=== PATIENT | male | born 1995 | race Caucasian/White ===

== ENCOUNTER 2017-06-11 00:19 | Emergency (ER) | payer BC ==
[~2017-06-11] VITALS: Ht 182.9 cm; Wt 85.5 kg
[~2017-06-11 00:19] MED LIST: ACET325T33 PO; CIPR500T4 PO; DICY10CA60 PO; DICY20TA59 PO; FAMO-96 PO; MAG355OR14 PO; METR500T PO; OMEP20CA16 PO; OMEP40CA6 PO; ONDA4TAB14 PO; ONDA4TAB35 PO; ONDA4TAB8 PO; ZOF8 PO
[2017-06-11 00:26] VITALS: Ht 182.9 cm; Wt 85.5 kg
[2017-06-11] MEDS ORDERED: ONDANSETRON 4 MG INJ IV STA (01:41)
[2017-06-11] MEDS ORDERED: SOD CHLORIDE 0.9% 1,000 ML IV STA (01:41)
[2017-06-11] MEDS ORDERED: morphine 4 MG/ML VIAL IV STA ×2 (01:41→03:27)
--- NOTE | 2017-06-11 01:46 | ERA ---
ER Documentation Chief Complaint Date/Time DATE: 06/11/17 TIME: 01:45 Chief Complaint mid abdominal pain/vomiting x 1 day HPI Patient is a 22-year-old male who presents with sudden onset, constant, dull, moderate to severe epigastric and right upper quadrant pain for 8 hours. He reports many episodes of vomiting. He denies diarrhea. He reports subjective fever. He states that he last ate lunch, and his symptoms did not start for several hours afterwards. He has not experienced this pain before. ROS All systems reviewed and are negative except as per history of present illness. Medications Home Meds Active Scripts Dicyclomine Hcl* (Bentyl*) 10 Mg Capsule, 10 MG PO QID, #20 CAP Prov:DANIEL YOO MD 06/11/17 Famotidine* (Pepcid*) 20 Mg Tablet, 20 MG PO BID for 7 Days, TAB Prov:DANIEL YOO MD 06/11/17 Ondansetron Hcl* (Zofran*) 4 Mg Tablet, 4 MG PO Q8H Y for NAUSEA AND/OR VOMITING , #20 TAB Prov:DANIEL YOO MD 06/11/17 Acetaminophen* (Tylenol*) 325 Mg Tablet, 2 TAB PO Q6 Y for PAIN AND OR ELEVATED TEMP, #20 TAB Prov:JENNIFER VICTOR PA-C 05/18/17 Omeprazole* (Omeprazole*) 20 Mg Capsule.dr, 20 MG PO DAILY, #30 Prov:JENNIFER VICTOR PA-C 05/18/17 Ondansetron (Ondansetron Odt) 4 Mg Tab.rapdis, 4 MG PO Q6H Y for NAUSEA AND/OR VOMITING, #10 TAB Prov:JENNIFER VICTOR PA-C 05/18/17 Mag Hydrox/Al Hydrox/Simeth (Maalox Advanced Suspension) 355 Ml Oral.susp, 2 TSP PO TID for PAIN, #12 OZ Prov:MUKUL RENNER MD 04/10/17 Omeprazole* (Omeprazole*) 40 Mg Capsule.dr, 40 MG PO DAILY, #30 CAP Prov:MUKUL RENNER MD 04/10/17 Ondansetron Hcl* (Zofran*) 4 Mg Tablet, 4 MG PO Q8H Y for NAUSEA AND/OR VOMITING , #20 TAB Prov:MUKUL RENNER MD 04/10/17 Ondansetron (Ondansetron Odt) 4 Mg Tab.rapdis, 4 MG PO Q6H Y for NAUSEA AND/OR VOMITING, #10 TAB Prov:NORAH,ARTURO 03/09/17 Omeprazole* (Omeprazole*) 40 Mg Capsule.dr, 40 MG PO DAILY, #15 CAP Prov:NORAH,ARTURO 03/09/17 Famotidine* (Pepcid*) 20 Mg Tablet, 20 MG PO BID for 10 Days, TAB Prov:SARAH BRADSHAW DO 11/02/16 Ondansetron Hcl* (Zofran*) 4 Mg Tablet, 4 MG PO Q8H Y for NAUSEA AND/OR VOMITING , #15 TAB Prov:SARAH BRADSHAW DO 11/02/16 Dicyclomine Hcl* (Bentyl*) 10 Mg Capsule, 10 MG PO QID for 3 Days, CAP Prov:BINTA JC 07/20/16 Ondansetron (Ondansetron Odt) 4 Mg Tab.rapdis, 4 MG PO Q6H Y for NAUSEA AND/OR VOMITING, #10 TAB Prov:BINTA JC 07/20/16 Famotidine* (Pepcid*) 20 Mg Tablet, 20 MG PO BID for 4 Days, TAB Prov:BINTA JC 07/20/16 Dicyclomine Hcl* (Bentyl*) 20 Mg Tablet, 20 MG PO QID for abdominal cramps, #20 TAB Prov:ROBERT AMBRIZ DO 06/07/16 Ondansetron Hcl* (Zofran* ODT) 8 mg -ODT Tab.disper, 8 MG PO Q6 Y for NAUSEA AND /OR VOMITING, #10 TAB Prov:MIL AMBRIZS Ale DO 06/07/16 Metronidazole* (Flagyl*) 500 Mg Tablet, 500 MG PO TID for 7 Days, TAB Prov:MIL AMBRIZS ARadha DO 06/07/16 Ciprofloxacin Hcl* (Ciprofloxacin Hcl*) 500 Mg Tablet, 500 MG PO BID for 5 Days , TAB Prov:ROBERT AMBRIZ DO 06/07/16 Ondansetron Hcl* (Zofran* ODT) 4 mg -ODT Tab.disper, 4 MG PO Q6 Y for NAUSEA AND /OR VOMITING, #10 TAB Prov:KASHIF LUCAS DO 03/07/16 Allergies Allergies: Coded Allergies: No Known Allergies (Verified Allergy, Mild, 07/05/10) PMhx/Soc Past medical history: None Past surgical history: None Social history: Drinks alcohol, last alcohol was over the weekend. Denies tobacco or illicit drugs. History of Surgery: No Anesthesia Reaction: No Hx Neurological Disorder: No Hx Respiratory Disorders: No Hx Cardiac Disorders: No Hx Psychiatric Problems: No Hx Miscellaneous Medical Probl: Yes (Gasritis) Hx Alcohol Use: Yes Hx Substance Use: Yes Hx Tobacco Use: Yes FmHx Family History: No coronary disease, No diabetes Physical Exam Vitals Vital Signs Date Time Temp Pulse Resp B/P Pulse Ox O2 Delivery O2 Flow Rate FiO2 06/11/17 05:00 98.7 79 20 191/92 99 Room Air 189/95 06/11/17 03:36 99.1 97 22 182/98 99 Room Air 06/11/17 00:26 98.0 69 20 167/90 98 Physical Exam Const: Alert, in mild distress Head: Atraumatic Eyes: Normal Conjunctiva, no pallor, no icterus ENT: Normal External Ears, Nose and Mouth. Mucous membranes moist Neck: Full range of motion..~ No meningismus. Resp: Clear to auscultation bilaterally, no wheezes, no rales Cardio: Regular rate and rhythm, no murmurs Abd: Soft, nondistended, tender in the epigastrium and right upper quadrant, mild right lower quadrant tenderness, no guarding, no rebound Skin: No petechiae or rashes Back: No midline or flank tenderness Ext: No cyanosis, or edema Neur: Awake and alert Psych: Normal Mood and Affect Result Diagram: 06/11/17 0150 06/11/17 0150 Results 24 hrs Laboratory Tests Test 06/11/17 01:50 06/11/17 03:50 White Blood Count 17.110^3/ul Red Blood Count 5.3010^6/ul Hemoglobin 15.7g/dl Hematocrit 44.2% Mean Corpuscular Volume 83.4fl Mean Corpuscular Hemoglobin 29.6pg Mean Corpuscular Hemoglobin Concent 35.5g/dl Red Cell Distribution Width 12.2% Platelet Count 06859^3/UL Mean Platelet Volume 9.7fl Neutrophils % 92.0% Lymphocytes % 2.0% Reactive Lymphocytes % (Manual) 2% Monocytes % 4.0% Neutrophils # 15.710^3/ul Lymphocytes # 0.310^3/ul Monocytes # 0.710^3/ul Platelet Estimate PLT APPEAR ADEQUATE Prothrombin Time 13.0Sec Prothrombin Time Ratio 1.0 INR International Normalized Ratio 0.98 Sodium Level 144mmol/L Potassium Level 4.0mmol/L Chloride Level 98mmol/L Carbon Dioxide Level 22mmol/L Anion Gap 28 Blood Urea Nitrogen 11mg/dl Creatinine 0.73mg/dl Glucose Level 166mg/dl Calcium Level 10.8mg/dl Total Bilirubin 0.3mg/dl Direct Bilirubin 0.00mg/dl Indirect Bilirubin 0.3mg/dl Aspartate Amino Transf (AST/SGOT) 29IU/L Alanine Aminotransferase (ALT/SGPT) 20IU/L Alkaline Phosphatase 97IU/L Total Protein 8.7g/dl Albumin 5.3g/dl Globulin 3.40g/dl Albumin/Globulin Ratio 1.55 Lipase 30U/L Urine Color YELLOW Urine Clarity CLOUDY Urine pH 7.0 Urine Specific [place] 1.041 Urine Ketones TRACEmg/dL Urine Nitrite NEGATIVEmg/dL Urine Bilirubin NEGATIVEmg/dL Urine Urobilinogen NEGATIVEmg/dL Urine Leukocyte Esterase NEGATIVELeu/ul Urine Microscopic RBC 5/HPF Urine Microscopic WBC 4/HPF Urine Amorphous Crystals FEW/HPF Urine Bacteria FEW/HPF Urine Mucus MODERATE/HPF Urine Hemoglobin NEGATIVEmg/dL Urine Glucose 1+mg/dL Urine Total Protein NEGATIVEmg/dl Current Medications Medications (Trade) Dose Ordered Sig/Rosamaria Route PRN Reason Start Time Stop Time Status Last Admin Dose Admin Sodium Chloride (NS) 1,000 ml @ 1,000 mls/hr Q1H STAT IV 06/11/17 01:41 06/11/17 02:40 DC 06/11/17 01:57 Morphine Sulfate (morphine) 4 mg ONCE STAT IV 06/11/17 01:41 06/11/17 01:43 DC 06/11/17 01:57 Ondansetron HCl (Zofran Inj) 4 mg ONCE STAT IV 06/11/17 01:41 06/11/17 01:43 DC 06/11/17 01:56 Famotidine 20 mg 20 mg ONCE ONCE IV 06/11/17 02:00 06/11/17 02:01 DC 06/11/17 01:56 Sodium Chloride (NS) 100 ml @ ud STK-MED ONCE .ROUTE 06/11/17 03:08 06/11/17 03:09 DC 06/11/17 03:10 Iohexol (Omnipaque 300mg/ ml) 150 ml STK-MED ONCE .ROUTE 06/11/17 03:08 06/11/17 03:09 DC 06/11/17 03:10 Morphine Sulfate (morphine) 4 mg ONCE STAT IV 06/11/17 03:27 06/11/17 03:28 DC 06/11/17 03:33 Procedures/MDM MDM: Patient is a 22-year-old male who presents with epigastric and right upper quadrant pain associated with numerous episodes of vomiting over the last several hours. The patient was tender in the right upper quadrant and appeared very uncomfortable. Labs showed leukocytosis but no evidence of LFT abnormalities or pancreatitis. The patient reported subjective fever. He did have mild right lower quadrant tenderness. Right upper quadrant ultrasound was unremarkable, so a CT scan was performed and is also unremarkable. After the CT was performed, I became aware that the patient has had nearly monthly visits for the last 4 months with the same symptoms. He has had numerous prior CTs that did not show acute pathology. The patient did not disclose having had prior episodes of similar symptoms. I did confront him about his medical record and he acknowledges that he has had the same pain several times in the past. He is not sure what the causes. 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 The patient denies recent marijuana use. 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 On reassessment, the patient appeared significantly improved. He was able to tolerate oral intake without vomiting. He did have persistently elevated blood pressure. He was advised to contact his PMD for close follow-up for blood pressure recheck and possible gastroenterology referral. I prescribed him Zofran, Pepcid, and Bentyl for symptom medic treatment at home. Departure Diagnosis: Primary Impression: Abdominal pain Qualified Code: R10.13 - Epigastric pain Additional Impressions: Vomiting Qualified Code: G43.A0 - Non-intractable cyclical vomiting with nausea Elevated blood pressure reading Condition: DANIEL Soto MD Jun 11, 2017 01:46
[2017-06-11 01:58] LABS: ADD SCAN DIFF NO
[2017-06-11] MEDS ORDERED: FAMOTIDINE 20 MG INJ IV ONE (02:00)
--- NOTE | 2017-06-11 02:13 | RADRPT ---
PROCEDURE: ULTRASOUND LIMITED ABDOMEN CLINICAL INDICATION: 22-year-old male with abdominal pain. TECHNIQUE: Multiple sonographic of the right upper quadrant of the abdomen were obtained. The imag es were reviewed on a PACS workstation. COMPARISON: CT abdomen/pelvis November 02, 2016. FINDINGS: The pancreas is partially visualized and is otherwise without abnormal echogenicity. The liver displays normal echogenicity. The liver measures 16.8 cm in length. No evidence of intrah epatic biliary ductal dilatation is seen. The portal and hepatic veins are unremarkable. The gallbladder demonstrates no wall thickening, sludge, nor stones. No pericholecystic fluid is see n. The common bile duct measures 3.9 mm and is not dilated. The right kidney displays normal echogenicity. The right kidney measures 12.0 cm in length. No calie ctasis or hydronephrosis is seen. No free fluid is seen. IMPRESSION: Unremarkable right upper quadrant abdominal ultrasound. .Mark Dennis MD, MD Date Time Electronically viewed and signed by .Mark Dennis MD, on 06/11/2017 02:13 .Vandana
[2017-06-11 02:14] LABS: ABNORMAL IP MESSAGE 1; HEMATOCRIT 44.2 % (42.0-52.0); HEMOGLOBIN 15.7 g/dl (14.0-18.0); MEAN CORPUSCULAR HEMOGLOBIN 29.6 pg (29.0-33.0); MEAN CORPUSCULAR HGB CONC 35.5 g/dl (32.0-37.0); MEAN CORPUSCULAR VOLUME 83.4 fl (82.0-101.0); MEAN PLATELET VOLUME 9.7 fl (7.4-10.4); PLATELET COUNT 369 10^3/UL (140-415); RED CELL DISTRIBUTION WIDTH 12.2 % (11.5-14.5); WHITE BLOOD COUNT 17.1 10^3/ul (4.8-10.8)
[2017-06-11 02:18] LABS: INR 0.98
[2017-06-11 02:22] LABS: ALBUMIN 5.3 g/dl (3.3-4.9); ALBUMIN/GLOBULIN RATIO 1.55; BILIRUBIN,INDIRECT 0.3 mg/dl (0-1.1); BILIRUBIN,TOTAL 0.3 mg/dl (0.2-1.3); CALCIUM 10.8 mg/dl (8.4-10.2); CREATININE 0.73 mg/dl (0.61-1.24); TOTAL PROTEIN 8.7 g/dl (6.1-8.1)
[2017-06-11 02:36] LABS: LYMPHOCYTES # 0.3 10^3/ul (0.8-2.9); MONOCYTE # 0.7 10^3/ul (0.3-0.9); NEUTROPHIL # 15.7 10^3/ul (1.6-7.5); REACTIVE LYMPHOCYTES% (M) 2 % (0-0)
[2017-06-11 02:37] LABS: PLATELET ESTIMATE PLT APPEAR ADEQUATE
[2017-06-11] MEDS ORDERED: IOHEXOL 300MG/ML 150 ML BTL ONE (03:08)
[2017-06-11] MEDS ORDERED: SOD CHLORIDE 0.9% 100 ML ONE (03:08)
--- NOTE | 2017-06-11 04:07 | RADRPT ---
PROCEDURE: CT ABDOMEN/PELVIS WITH CONTRAST CLINICAL INDICATION: 22-year-old male with right-sided abdominal pain. TECHNIQUE: The study was performed utilizing a GE [employer] VCT 64-slice CT scanner. Direct axia l sections were obtained through the abdomen and pelvis with the use of bases of Omnipaque-300 nonio irina intravenous contrast material. The patient was rescanned secondary to motion artifact. Sagittal and coronal reformations were obtained. One or more of the following dose reduction techniques were utilized: automated exposure control, adjustment of the mA and/or kV according to patient's size or use of iterative reconstruction technique. The images were reviewed on a PACS workstation. CTD/vol = 26.4 mGy; Total Exam DLP = 1665.1 mGy-cm. COMPARISON: Right upper quadrant ultrasound June 11, 2017; CT abdomen/pelvis November 02, 2016. FINDINGS: The lung bases are unremarkable. There is no evidence for significant pleural effusion. The liver has a normal size and contour without focal areas of abnormal density or contrast enhancement. No in trahepatic nor extrahepatic biliary ductal dilatation is seen. The gallbladder demonstrates no wall thickening nor pericholecystic fluid. No biliary stones are evident. The pancreas is without areas o f abnormal attenuation or contrast enhancement. This spleen is identified and has a normal size wit hout abnormal density or contrast enhancement. The adrenal glands are unremarkable. The kidneys are functional bilaterally without abnormal density. No hydroureteronephrosis nor nephroureterolithiasis is evident. The urinary bladder contains urine. There is no evidence for bowel obstruction. The ap pendix is retrocecal and is without edema or surrounding inflammatory reaction. There is no signific ant free fluid. The aortoiliac vessels are without aneurysmal dilatation. The osseous structures are intact. IMPRESSION: Motion artifact otherwise unremarkable contrast CT scan of the abdomen and pelvis. .Mark Dennis MD, MD Date Time Electronically viewed and signed by .Mark Dennis MD, MD on 06/11/2017 04:07 .Vandana
[2017-06-11 04:30] LABS: ADD UMIC YES; UR AMORPHOUS CRYSTAL FEW /HPF (NONE SEEN); UR ASCORBIC ACID NEGATIVE (NEGATIVE); UR BACTERIA FEW /HPF (NONE SEEN); UR BILIRUBIN (Dip) NEGATIVE (NEGATIVE); UR BLOOD (Dip) NEGATIVE (NEGATIVE); UR CLARITY CLOUDY (CLEAR); UR COLOR YELLOW (YELLOW); UR GLUCOSE (Dip) 1+ mg/dL (NEGATIVE); UR KETONES (Dip) TRACE mg/dL (NEGATIVE); UR LEUKOCYTE ESTERASE (Dip) NEGATIVE Leu/ul (NEGATIVE); UR MUCUS MODERATE /HPF (NONE SEEN); UR NITRITE (Dip) NEGATIVE (NEGATIVE); UR RBC 5 /HPF (0-5); UR SPECIFIC GRAVITY (Dip) 1.041 (1.003-1.030); UR TOTAL PROTEIN (Dip) NEGATIVE (NEGATIVE); UR UROBILINOGEN (Dip) NEGATIVE (NEGATIVE)
[2017-06-11 05:00] VITALS: BP 189/95; PULSE 79; RESP 20; TEMP 98.7
[2017-06-11] MEDS ORDERED: ONDA4TAB8 PO (05:20)
[2017-06-11] MEDS ORDERED: FAMO-96 PO (05:20)
[2017-06-11] MEDS ORDERED: DICY10CA60 PO (05:20)
[2017-06-12] MEDS ORDERED: DICY10CA60 PO (14:37)
[2017-06-12] MEDS ORDERED: ONDA4TAB14 PO (14:37)
[2017-06-12] MEDS ORDERED: NAPR-688 PO (14:37)
== END 2017-06-11 05:30 | disposition home or self-care (01) ==
LOC: E/R 00:19 → MERGE 00:19 → E/R 05:30
DX: R10.13 Epigastric pain (principal); G43.A0 Cyclical vomiting, in migraine, not intractable; R03.0 Elevated blood-pressure reading, without diagnosis of hypertension; Z87.891 Personal history of nicotine dependence
CPT/HCPCS: 36415; 74177; 76705; 80053; 81001; 83690; 85025; 85610; 96361; 96374; 96375; 96376; 99285; J2270; J2405; J7030; Q9967

== ENCOUNTER 2017-06-12 12:07 | Emergency (ER) | payer BC ==
[~2017-06-12] VITALS: Ht 172.7 cm; Wt 84.0 kg
[2017-06-12 12:09] VITALS: Ht 172.7 cm; Wt 84.0 kg
[2017-06-12] MEDS ORDERED: LIDOCAINE/MYLANTA 40 ML BTL PO STA (12:27)
[2017-06-12] MEDS ORDERED: ONDANSETRON 4 MG INJ IV STA (12:27)
[2017-06-12] MEDS ORDERED: SOD CHLORIDE 0.9% 1,000 ML IV STA (12:27)
[2017-06-12] MEDS ORDERED: KETOROLAC 30 MG INJ IV STA (12:27)
[2017-06-12 12:58] LABS: BASOPHILS % 0.3 % (0.0-2.0); HEMATOCRIT 44.3 % (42.0-52.0); HEMOGLOBIN 16.2 g/dl (14.0-18.0); LYMPHOCYTES # 0.9 10^3/ul (0.8-2.9); LYMPHOCYTES % 6.6 % (15.0-51.0); MEAN CORPUSCULAR HEMOGLOBIN 29.8 pg (29.0-33.0); MEAN CORPUSCULAR HGB CONC 36.6 g/dl (32.0-37.0); MEAN CORPUSCULAR VOLUME 81.4 fl (82.0-101.0); MEAN PLATELET VOLUME 9.5 fl (7.4-10.4); MONOCYTE # 0.6 10^3/ul (0.3-0.9); MONOCYTES % 4.6 % (0.0-11.0); NEUTROPHIL # 12.3 10^3/ul (1.6-7.5); NEUTROPHILS % 87.9 % (39.0-77.0); PLATELET COUNT 373 10^3/UL (140-415); RED BLOOD COUNT 5.44 10^6/ul (4.70-6.10)
[2017-06-12 13:09] LABS: ALANINE AMINOTRANSFERASE 28 IU/L (13-69); ALBUMIN 5.1 g/dl (3.3-4.9); ALBUMIN/GLOBULIN RATIO 1.82; ALKALINE PHOSPHATASE 83 IU/L (42-121); ANION GAP 26 (8-16); ASPARTATE AMINO TRANSFERASE 27 IU/L (15-46); BILIRUBIN,INDIRECT 0.6 mg/dl (0-1.1); BILIRUBIN,TOTAL 0.6 mg/dl (0.2-1.3); BLOOD UREA NITROGEN 11 mg/dl (7-20); CALCIUM 9.8 mg/dl (8.4-10.2); CARBON DIOXIDE 21 mmol/L (21-31); CHLORIDE 98 mmol/L (97-110); CREATININE 0.78 mg/dl (0.61-1.24); GLUCOSE 135 mg/dl (70-220); POTASSIUM 3.3 mmol/L (3.5-5.1); SODIUM 142 mmol/L (135-144); TOTAL PROTEIN 7.9 g/dl (6.1-8.1)
[2017-06-12 13:16] LABS: UR AMORPHOUS CRYSTAL FEW /HPF (NONE SEEN); UR RBC 2 /HPF (0-5); UR WBC CLUMPS FEW /HPF (NONE SEEN)
[2017-06-12] MEDS ORDERED: morphine 4 MG/ML VIAL IV STA (13:16)
[2017-06-12 13:25] LABS: TROPONIN-I < 0.012 ng/ml (0.00-0.12)
[2017-06-12 13:28] LABS: ADD UMIC YES; UR ASCORBIC ACID NEGATIVE (NEGATIVE); UR BILIRUBIN (Dip) NEGATIVE (NEGATIVE); UR BLOOD (Dip) NEGATIVE (NEGATIVE); UR CLARITY CLOUDY (CLEAR); UR COLOR YELLOW (YELLOW); UR GLUCOSE (Dip) NEGATIVE (NEGATIVE); UR KETONES (Dip) NEGATIVE (NEGATIVE); UR LEUKOCYTE ESTERASE (Dip) NEGATIVE Leu/ul (NEGATIVE); UR NITRITE (Dip) NEGATIVE (NEGATIVE); UR SPECIFIC GRAVITY (Dip) 1.019 (1.003-1.030); UR TOTAL PROTEIN (Dip) NEGATIVE (NEGATIVE); UR UROBILINOGEN (Dip) 1+ mg/dL (NEGATIVE)
[2017-06-12] MEDS ORDERED: SOD CHLORIDE 0.9% 1,000 ML IV ONE (14:00)
[2017-06-12 14:25] LABS: OPIATES Negative (NEGATIVE)
[2017-06-12 14:37] LABS: BARBITURATES Negative (NEGATIVE); BENZODIAZEPINES Negative (NEGATIVE); CANNABINOIDS Positive (NEGATIVE); COCAINE Negative (NEGATIVE)
[2017-06-12] MEDS ORDERED: NAPR-688 PO (14:37)
[2017-06-12] MEDS ORDERED: ONDA4TAB14 PO (14:37)
[2017-06-12] MEDS ORDERED: DICY10CA60 PO (14:37)
--- NOTE | 2017-06-12 14:42 | ERD ---
ER Documentation Chief Complaint Date/Time DATE: 06/12/17 TIME: 14:39 Chief Complaint ABD PAIN WITH VOMITING X 2 DAYS HPI This 22-year-old male presents for abdominal pain 2 days. Also has vomiting. The pain is described as a crampy pain in the middle of his abdomen. Denies any fevers and chills. He is accompanied by his mother. States that he also gets chest pain with his vomiting. No shortness of breath. ROS All systems reviewed and are negative except as per history of present illness. Medications Home Meds Active Scripts Dicyclomine Hcl* (Bentyl*) 10 Mg Capsule, 10 MG PO TID for PAIN, #10 CAP Prov:LANCEKASHIF DO 06/12/17 Ondansetron (Ondansetron Odt) 4 Mg Tab.rapdis, 4 MG PO Q6H Y for NAUSEA AND/OR VOMITING, #10 TAB Prov:LANCEKASHIFSHAMAR FORMAN 06/12/17 Naproxen* (Naproxen*) 500 Mg Tablet, 500 MG PO BID Y for PAIN, #20 TAB Prov:LANCEKASHIF DO 06/12/17 Omeprazole* (Omeprazole*) 20 Mg Capsule.dr, 20 MG PO DAILY, #30 Prov:JENNIFER VICTOR PA-C 05/18/17 Ondansetron (Ondansetron Odt) 4 Mg Tab.rapdis, 4 MG PO Q6H Y for NAUSEA AND/OR VOMITING, #10 TAB Prov:JENNIFER VICTOR PA-C 05/18/17 Discontinued Scripts Dicyclomine Hcl* (Bentyl*) 10 Mg Capsule, 10 MG PO QID, #20 CAP Prov:DANIEL YOO MD 06/11/17 Famotidine* (Pepcid*) 20 Mg Tablet, 20 MG PO BID for 7 Days, TAB Prov:DANIEL YOO MD 06/11/17 Ondansetron Hcl* (Zofran*) 4 Mg Tablet, 4 MG PO Q8H Y for NAUSEA AND/OR VOMITING , #20 TAB Prov:DANIEL YOO MD 06/11/17 Acetaminophen* (Tylenol*) 325 Mg Tablet, 2 TAB PO Q6 Y for PAIN AND OR ELEVATED TEMP, #20 TAB Prov:JENNIFER VICTOR PA-C 05/18/17 Mag Hydrox/Al Hydrox/Simeth (Maalox Advanced Suspension) 355 Ml Oral.susp, 2 TSP PO TID for PAIN, #12 OZ Prov:MUKUL RENNER MD 04/10/17 Omeprazole* (Omeprazole*) 40 Mg Capsule.dr, 40 MG PO DAILY, #30 CAP Prov:MUKUL RENNER MD 04/10/17 Ondansetron Hcl* (Zofran*) 4 Mg Tablet, 4 MG PO Q8H Y for NAUSEA AND/OR VOMITING , #20 TAB Prov:MUKUL RENNER MD 04/10/17 Ondansetron (Ondansetron Odt) 4 Mg Tab.rapdis, 4 MG PO Q6H Y for NAUSEA AND/OR VOMITING, #10 TAB Prov:NORAH,ARTURO 03/09/17 Omeprazole* (Omeprazole*) 40 Mg Capsule.dr, 40 MG PO DAILY, #15 CAP Prov:NORAH,ARTURO 03/09/17 Famotidine* (Pepcid*) 20 Mg Tablet, 20 MG PO BID for 10 Days, TAB Prov:SARAH BRADSHAW DO 11/02/16 Ondansetron Hcl* (Zofran*) 4 Mg Tablet, 4 MG PO Q8H Y for NAUSEA AND/OR VOMITING , #15 TAB Prov:SARAH BRADSHAW DO 11/02/16 Dicyclomine Hcl* (Bentyl*) 10 Mg Capsule, 10 MG PO QID for 3 Days, CAP Prov:HOSEABINTA PATE 07/20/16 Ondansetron (Ondansetron Odt) 4 Mg Tab.rapdis, 4 MG PO Q6H Y for NAUSEA AND/OR VOMITING, #10 TAB Prov:HOSEABINTA PATE C 07/20/16 Famotidine* (Pepcid*) 20 Mg Tablet, 20 MG PO BID for 4 Days, TAB Prov:HOSEABINTA PATE 07/20/16 Dicyclomine Hcl* (Bentyl*) 20 Mg Tablet, 20 MG PO QID for abdominal cramps, #20 TAB Prov:ROBERT AMBRIZ DO 06/07/16 Ondansetron Hcl* (Zofran* ODT) 8 mg -ODT Tab.disper, 8 MG PO Q6 Y for NAUSEA AND /OR VOMITING, #10 TAB Prov:ROBERT AMBRIZ DO 06/07/16 Metronidazole* (Flagyl*) 500 Mg Tablet, 500 MG PO TID for 7 Days, TAB Prov:ROBERT AMBRIZ. DO 06/07/16 Ciprofloxacin Hcl* (Ciprofloxacin Hcl*) 500 Mg Tablet, 500 MG PO BID for 5 Days , TAB Prov:ROBERT AMBRIZ DO 06/07/16 Ondansetron Hcl* (Zofran* ODT) 4 mg -ODT Tab.disper, 4 MG PO Q6 Y for NAUSEA AND /OR VOMITING, #10 TAB Prov:KASHIF LUCAS DO 03/07/16 Allergies Allergies: Coded Allergies: No Known Allergies (Verified Allergy, Mild, 06/12/17) PMhx/Soc Medical and Surgical Hx: pt denies Surgical Hx History of Surgery: No Anesthesia Reaction: No Hx Neurological Disorder: No Hx Respiratory Disorders: No Hx Cardiac Disorders: No Hx Psychiatric Problems: No Hx Miscellaneous Medical Probl: Yes (Gastritis) Hx Alcohol Use: No Hx Substance Use: No Hx Tobacco Use: No Smoking Status: Never smoker Physical Exam Vitals Vital Signs Date Time Temp Pulse Resp B/P Pulse Ox O2 Delivery O2 Flow Rate FiO2 06/12/17 13:22 99.1 66 18 180/100 99 06/12/17 12:09 98.1 68 18 167/88 99 Physical Exam Const: [] Head: Atraumatic Eyes: Normal Conjunctiva ENT: Normal External Ears, Nose and Mouth. Neck: Full range of motion..~ No meningismus. Resp: Clear to auscultation bilaterally Cardio: Regular rate and rhythm, no murmurs Abd: Soft, non tender, non distended. Normal bowel sounds Skin: No petechiae or rashes Back: No midline or flank tenderness Ext: No cyanosis, or edema Neur: Awake and alert Psych: Normal Mood and Affect Result Diagram: 06/12/17 1237 06/12/17 1237 Results 24 hrs Laboratory Tests Test 06/12/17 12:37 06/12/17 12:40 06/12/17 13:35 White Blood Count 14.010^3/ul Red Blood Count 5.4410^6/ul Hemoglobin 16.2g/dl Hematocrit 44.3% Mean Corpuscular Volume 81.4fl Mean Corpuscular Hemoglobin 29.8pg Mean Corpuscular Hemoglobin Concent 36.6g/dl Red Cell Distribution Width 12.0% Platelet Count 68089^3/UL Mean Platelet Volume 9.5fl Neutrophils % 87.9% Lymphocytes % 6.6% Monocytes % 4.6% Eosinophils % 0.0% Basophils % 0.3% Nucleated Red Blood Cells % 0.0/100WBC Neutrophils # 12.310^3/ul Lymphocytes # 0.910^3/ul Monocytes # 0.610^3/ul Eosinophils # 0.010^3/ul Basophils # 0.010^3/ul Nucleated Red Blood Cells # 0.010^3/ul Sodium Level 142mmol/L Potassium Level 3.3mmol/L Chloride Level 98mmol/L Carbon Dioxide Level 21mmol/L Anion Gap 26 Blood Urea Nitrogen 11mg/dl Creatinine 0.78mg/dl Glucose Level 135mg/dl Lactic Acid Level 5.2mmol/L 2.5mmol/L Calcium Level 9.8mg/dl Total Bilirubin 0.6mg/dl Direct Bilirubin 0.00mg/dl Indirect Bilirubin 0.6mg/dl Aspartate Amino Transf (AST/SGOT) 27IU/L Alanine Aminotransferase (ALT/SGPT) 28IU/L Alkaline Phosphatase 83IU/L Troponin I < 0.012ng/ml Total Protein 7.9g/dl Albumin 5.1g/dl Globulin 2.80g/dl Albumin/Globulin Ratio 1.82 Lipase 48U/L Urine Color YELLOW Urine Clarity CLOUDY Urine pH 8.0 Urine Specific [place] 1.019 Urine Ketones NEGATIVEmg/dL Urine Nitrite NEGATIVEmg/dL Urine Bilirubin NEGATIVEmg/dL Urine Urobilinogen 1+mg/dL Urine Leukocyte Esterase NEGATIVELeu/ul Urine Microscopic RBC 2/HPF Urine Microscopic WBC 3/HPF Urine Amorphous Crystals FEW/HPF Urine Hemoglobin NEGATIVEmg/dL Urine Glucose NEGATIVEmg/dL Urine Total Protein NEGATIVEmg/dl Urine Opiates Screen Negative Urine Barbiturates Negative Urine Amphetamines Screen Negative Urine Benzodiazepines Screen Negative Urine Cocaine Screen Negative Urine Cannabinoids Positive Current Medications Medications (Trade) Dose Ordered Sig/Rosamaria Route PRN Reason Start Time Stop Time Status Last Admin Dose Admin Sodium Chloride (NS) 1,000 ml @ 1,000 mls/hr Q1H STAT IV 06/12/17 12:27 06/12/17 13:26 DC 06/12/17 12:42 Ondansetron HCl (Zofran Inj) 4 mg ONCE STAT IV 06/12/17 12:27 06/12/17 12:29 DC 06/12/17 12:42 Miscellaneous Medication (Gi Cocktail (2)) 40 ml ONCE STAT PO 06/12/17 12:27 06/12/17 12:29 DC 06/12/17 12:43 Ketorolac Tromethamine (Toradol) 30 mg ONCE STAT IV 06/12/17 12:27 06/12/17 12:29 DC 06/12/17 12:43 Morphine Sulfate 4 mg 4 mg ONCE STAT IV 06/12/17 13:16 06/12/17 13:17 DC 06/12/17 13:38 Sodium Chloride (NS) 1,000 ml @ 1,000 mls/hr Q1H ONCE IV 06/12/17 14:00 06/12/17 14:59 06/12/17 14:06 Procedures/MDM Crampy abdominal pain with negative CT yesterday and has slight elevated white blood cell count possibly associated to the vomiting. Patient also has an elevated lactic acid showing signs of dehydration. He was given 2 L of normal saline. Lactic acid did go down very quickly with fluid administration. Patient also had an anion gap. I prefer to admit the patient medical surgical floor for a gastroenterology evaluation as he has had many visits to this ER for abdominal pain. I spoke with Dr. Ackerman, of [facility], who disagreed with admission. He made the point that gastroenterology would not perform procedures in the weekend very likely. He could however arrange follow-up with either Dr. Kwong or Dr. Davila on Wednesday. He is going to call the patient with the details. I agreed to this is the patient's lactic acid is decreasing he is hydrated and he seems to be feeling much better. Vital signs are completely stable. I am discharging him in stable condition with instructions to follow-up on Wednesday. Departure Diagnosis: Primary Impression: Dehydration Additional Impression: Abdominal pain Condition: Stable Patient Instructions: Abdominal Pain Additional Instructions: Call your primary care doctor TOMORROW for an appointment during the next 1-2 days.See the doctor sooner or return here if your condition worsens before your appointment time. KASHIF LUCAS DO Jun 12, 2017 14:42
[2017-06-12 14:45] VITALS: BP 135/84; PULSE 65; RESP 18; TEMP 98.9
== END 2017-06-12 14:45 | disposition home or self-care (01) ==
LOC: FTE 12:07
DX: E86.0 Dehydration (principal); R11.10 Vomiting, unspecified
CPT/HCPCS: 36415; 80053; 80307; 81001; 83605; 83690; 84484; 85025; 96374; 96375; 99284; J1885; J2270; J2405; J7030

== ENCOUNTER 2017-06-28 17:57 | Emergency (ER) | payer BC ==
[~2017-06-28] VITALS: Ht 157.5 cm; Wt 85.0 kg
[~2017-06-28 17:57] MED LIST changes: -ACET325T33 PO; -CIPR500T4 PO; -DICY20TA59 PO; -FAMO-96 PO; -MAG355OR14 PO; -METR500T PO; +NAPR-688 PO; -OMEP40CA6 PO; -ONDA4TAB35 PO; -ONDA4TAB8 PO; -ZOF8 PO
[2017-06-28 18:04] VITALS: Ht 157.5 cm; Wt 85.0 kg
[2017-06-28] MEDS ORDERED: SOD CHLORIDE 0.9% 1,000 ML IV STA (19:29)
[2017-06-28] MEDS ORDERED: ONDANSETRON 4 MG INJ IV STA ×2 (19:29→21:20)
[2017-06-28] MEDS ORDERED: PANTOPRAZOLE 40 MG INJ IV ONE (19:30)
[2017-06-28] MEDS ORDERED: LIDOCAINE/MYLANTA 40 ML BTL PO ONE (19:30)
[2017-06-28 20:16] LABS: BASOPHILS % 0.2 % (0.0-2.0); HEMATOCRIT 45.2 % (42.0-52.0); HEMOGLOBIN 16.3 g/dl (14.0-18.0); LYMPHOCYTES # 0.8 10^3/ul (0.8-2.9); LYMPHOCYTES % 4.6 % (15.0-51.0); MEAN CORPUSCULAR HEMOGLOBIN 29.6 pg (29.0-33.0); MEAN CORPUSCULAR HGB CONC 36.1 g/dl (32.0-37.0); MEAN CORPUSCULAR VOLUME 82.2 fl (82.0-101.0); MEAN PLATELET VOLUME 9.6 fl (7.4-10.4); MONOCYTE # 0.7 10^3/ul (0.3-0.9); MONOCYTES % 4.2 % (0.0-11.0); NEUTROPHILS % 90.3 % (39.0-77.0); PLATELET COUNT 395 10^3/UL (140-415); RED CELL DISTRIBUTION WIDTH 11.9 % (11.5-14.5); WHITE BLOOD COUNT 16.6 10^3/ul (4.8-10.8)
[2017-06-28 20:30] LABS: ALBUMIN 5.6 g/dl (3.3-4.9); ALBUMIN/GLOBULIN RATIO 1.69; BILIRUBIN,INDIRECT 0.5 mg/dl (0-1.1); BILIRUBIN,TOTAL 0.5 mg/dl (0.2-1.3); CALCIUM 10.5 mg/dl (8.4-10.2); CREATININE 0.67 mg/dl (0.61-1.24); POTASSIUM 3.6 mmol/L (3.5-5.1); TOTAL PROTEIN 8.9 g/dl (6.1-8.1)
[2017-06-28] MEDS ORDERED: BACLOFEN 10 MG TAB PO ONE (21:00)
[2017-06-28] MEDS ORDERED: morphine 4 MG/ML VIAL IV STA (21:14)
[2017-06-28] MEDS ORDERED: PANT40TA3 PO (21:54)
[2017-06-28] MEDS ORDERED: ACET500C5 PO (21:54)
[2017-06-28] MEDS ORDERED: ONDA4TAB14 PO (21:54)
--- NOTE | 2017-06-28 22:02 | ERD ---
ER Documentation Chief Complaint Date/Time DATE: 06/28/17 TIME: 21:55 Chief Complaint Complains of abdominal pain x 3 days HPI 10-year-old male patient with a past medical history of gastritis presents to the ED complaining of abdominal pain that started 3 days ago. Reports that he drank a cup of coffee and exacerbated his symptoms. Reports that it feels like a burning sensation. States that he had a few episodes of nonbilious nonbloody vomiting. Denies any chest pain, shortness of breath, diarrhea, constipation, bloody stools. Denies any hemoptysis. Reports that he does smoke marijuana however did not smoke for about 1 month. ROS All systems reviewed and are negative except as per history of present illness. Medications Home Meds Active Scripts Acetaminophen* (Acetaminophen*) 650 Mg Tablet, 650 MG PO Q6H Y for PAIN AND OR ELEVATED TEMP, #30 TAB Prov:ESTEFANY HERNANDEZ PA-C 06/30/17 Famotidine* (Pepcid*) 20 Mg Tablet, 20 MG PO DAILY, #30 TAB Prov:ESTEFANY HERNANDEZ PA-C 06/30/17 Ondansetron (Ondansetron Odt) 4 Mg Tab.rapdis, 4 MG PO Q6H Y for NAUSEA AND/OR VOMITING, #10 TAB Prov:HARLEY CHOI PA-C 06/28/17 Pantoprazole* (Protonix*) 40 Mg Tablet.dr, 40 MG PO DAILY, #20 TAB Prov:HARLEY CHOI PA-C 06/28/17 Acetaminophen* (Tylophen*) 500 Mg Capsule, 1 CAP PO Q6H Y for PAIN AND OR ELEVATED TEMP, #20 CAP Prov:HARLEY CHOI PA-C 06/28/17 Dicyclomine Hcl* (Bentyl*) 10 Mg Capsule, 10 MG PO TID for PAIN, #10 CAP Prov:KASHIF LUCAS DO 06/12/17 Ondansetron (Ondansetron Odt) 4 Mg Tab.rapdis, 4 MG PO Q6H Y for NAUSEA AND/OR VOMITING, #10 TAB Prov:KASHIF LUCAS DO 06/12/17 Naproxen* (Naproxen*) 500 Mg Tablet, 500 MG PO BID Y for PAIN, #20 TAB Prov:KASHIF LUCAS DO 06/12/17 Omeprazole* (Omeprazole*) 20 Mg Capsule.dr, 20 MG PO DAILY, #30 Prov:JENNIFER VICTOR PA-C 05/18/17 Ondansetron (Ondansetron Odt) 4 Mg Tab.rapdis, 4 MG PO Q6H Y for NAUSEA AND/OR VOMITING, #10 TAB Prov:JENNIFER VICTOR PA-C 05/18/17 Allergies Allergies: Coded Allergies: No Known Allergies (Verified Allergy, Mild, 06/12/17) PMhx/Soc History of Surgery: No Anesthesia Reaction: No Hx Neurological Disorder: No Hx Respiratory Disorders: No Hx Cardiac Disorders: No Hx Psychiatric Problems: No Hx Miscellaneous Medical Probl: Yes (Gastritis) Hx Alcohol Use: No Hx Substance Use: Yes (MARIJUANA) Hx Tobacco Use: No Smoking Status: Never smoker Physical Exam Vitals Vital Signs Date Time Temp Pulse Resp B/P Pulse Ox O2 Delivery O2 Flow Rate FiO2 06/28/17 22:16 99.8 71 20 172/76 98 Room Air 06/28/17 18:04 99.8 86 20 181/78 98 Physical Exam Const: Efe-awq-pudydboeh, well-nourished. In no acute distress. Head: Atraumatic, normocephalic Eyes: Normal Conjunctiva without injection. No purulent discharge. ENT: Normal external ear, nose. Moist oropharynx without tonsillar exudates. Non -erythematous pharynx. Uvula midline. No drooling. No trismus. Neck: No cervical midline tenderness. Full range of motion. No meningismus. No cervical lymphadenopathy. No JVD. Resp: Clear to auscultation bilaterally. No wheezing, rhonchi, rales, or crackles. No accessory muscle use. No retractions. Cardio: Regular rate and rhythm. No murmurs, rubs or gallops. Abd: Soft, left upper quadrant tenderness, non distended. Normal bowel sounds. No palpable masses. No rebound tenderness. No guarding. Negative McBurney's point. Negative psoas sign. Negative obturator sign. Skin: No petechiae or rashes Back: No midline tenderness. No CVA tenderness. Ext: No cyanosis, or edema. Neur: Awake and alert. Normal gait. Normal coordination. Psych: Normal Mood and Affect Result Diagram: 06/28/17195206/28/171952 Results 24 hrs Laboratory Tests Test 06/28/17 19:53 White Blood Count 16.610^3/ul Red Blood Count 5.5010^6/ul Hemoglobin 16.3g/dl Hematocrit 45.2% Mean Corpuscular Volume 82.2fl Mean Corpuscular Hemoglobin 29.6pg Mean Corpuscular Hemoglobin Concent 36.1g/dl Red Cell Distribution Width 11.9% Platelet Count 17729^3/UL Mean Platelet Volume 9.6fl Neutrophils % 90.3% Lymphocytes % 4.6% Monocytes % 4.2% Eosinophils % 0.0% Basophils % 0.2% Nucleated Red Blood Cells % 0.0/100WBC Neutrophils # 15.010^3/ul Lymphocytes # 0.810^3/ul Monocytes # 0.710^3/ul Eosinophils # 0.010^3/ul Basophils # 0.010^3/ul Nucleated Red Blood Cells # 0.010^3/ul Sodium Level 141mmol/L Potassium Level 3.6mmol/L Chloride Level 97mmol/L Carbon Dioxide Level 20mmol/L Anion Gap 28 Blood Urea Nitrogen 8mg/dl Creatinine 0.67mg/dl Glucose Level 141mg/dl Calcium Level 10.5mg/dl Total Bilirubin 0.5mg/dl Direct Bilirubin 0.00mg/dl Indirect Bilirubin 0.5mg/dl Aspartate Amino Transf (AST/SGOT) 29IU/L Alanine Aminotransferase (ALT/SGPT) 28IU/L Alkaline Phosphatase 94IU/L Total Protein 8.9g/dl Albumin 5.6g/dl Globulin 3.30g/dl Albumin/Globulin Ratio 1.69 Lipase 44U/L Current Medications Medications (Trade) Dose Ordered Sig/Rosamaria Route PRN Reason Start Time Stop Time Status Last Admin Dose Admin Sodium Chloride (NS) 1,000 ml @ 1,000 mls/hr Q1H STAT IV 06/28/17 19:29 06/28/17 20:28 DC 06/28/17 20:01 Ondansetron HCl (Zofran Inj) 4 mg ONCE STAT IV 06/28/17 19:29 06/28/17 19:31 DC 06/28/17 20:02 Pantoprazole (Protonix Iv) 40 mg ONCE ONCE IV 06/28/17 19:30 06/28/17 19:31 DC 06/28/17 20:02 Miscellaneous Medication (Gi Cocktail (2)) 40 ml ONCE ONCE PO 06/28/17 19:30 06/28/17 19:31 DC 06/28/17 20:01 Baclofen (Lioresal) 5 mg ONCE ONCE PO 06/28/17 21:00 06/28/17 21:01 DC 06/28/17 21:23 Morphine Sulfate (morphine) 4 mg ONCE STAT IV 06/28/17 21:14 06/28/17 21:16 DC 06/28/17 21:23 Ondansetron HCl (Zofran Inj) 4 mg ONCE STAT IV 06/28/17 21:20 06/28/17 21:21 DC 06/28/17 21:22 Procedures/MDM This is a 22-year-old male patient with no significant past medical history presents to the ED complaining of left upper quadrant abdominal pain that started 3 days ago. She is afebrile and nontoxic-appearing. Patient has normal vital signs. Patient was further worked up with CBC, CMP, lipase. Patient's pain and symptoms have improved after treatment with 1 L of normal saline, 4 mg IV morphine, 8 mg IV Zofran. Patient also started to hiccup and stated that it exacerbated his symptoms, therefore baclofen was ordered which controlled his symptoms. CBC: Leukocytosis of 16.6. No e/o of systemic infection. No e/o anemia. CMP: No e/o severe acidosis, alkalosis, renal failure, diabetic ketoacidosis, liver disease Lipase within normal limits. Urine: No leukocyte esterase, no nitrites, no hematuria. A differential diagnosis considered includes but is not limited to gastritis, GERD, peptic ulcer disease. Low suspicion for cholecystitis, choledocholithiasis , cholangitis, pancreatitis, appendicitis, bowel obstruction, ileus, volvulus, nephrolithiasis, pyelonephritis, hepatitis, perforated viscus, diverticulitis, abdominal hernia, acute abdomen, mesenteric ischemia or other emergent conditions. Discharge medications: Zofran, Protonix, Tylenol Follow up with primary care physician in 1-2 days for referral to hand tube bender for an endoscopy. Instructed patient to return to the ED sooner for any worsening symptoms. Patient's questions were answered. Patient understood and agreed with discharge plan. Patient discharged stable. Departure Diagnosis: Primary Impression: Epigastric pain Condition: Stable Patient Instructions: Gastritis Vs. Ulcer, Epigastric Pain (Uncertain Cause) Referrals: AUGUSTINE QUIÑONES MD (PCP) [facility] YOU HAVE RECEIVED A MEDICAL SCREENING EXAM AND THE RESULTS INDICATE THAT YOU DO NOT HAVE A CONDITION THAT REQUIRES URGENT TREATMENT IN THE EMERGENCY DEPARTMENT. FURTHER EVALUATION AND TREATMENT OF YOUR CONDITION CAN WAIT UNTIL YOU ARE SEEN IN YOUR DOCTORS OFFICE WITHIN THE NEXT 1-2 DAYS. IT IS YOUR RESPONSIBILITY TO MAKE AN APPOINTMENT FOR FOLOW-UP CARE. IF YOU HAVE A PRIMARY DOCTOR --you should call your primary doctor and schedule an appointment IF YOU DO NOT HAVE A PRIMARY DOCTOR YOU CAN CALL OUR PHYSICIAN REFERRAL HOTLINE AT IF YOU CAN NOT AFFORD TO SEE A PHYSICIAN YOU CAN CHOSE FROM THE FOLLOWING [facility] [address] [facility] [facility] [address] [facility] [address] [facility] [address] [facility] [address] [facility] [address] [facility]. [facility] [address] [facility]. [facility] YOU HAVE RECEIVED A MEDICAL SCREENING EXAM AND THE RESULTS INDICATE THAT YOU DO NOT HAVE A CONDITION THAT REQUIRES URGENT TREATMENT IN THE EMERGENCY DEPARTMENT. FURTHER EVALUATION AND TREATMENT OF YOUR CONDITION CAN WAIT UNTIL YOU ARE SEEN IN YOUR DOCTORS OFFICE WITHIN THE NEXT 1-2 DAYS. IT IS YOUR RESPONSIBILITY TO MAKE AN APPOINTMENT FOR FOLOW-UP CARE. IF YOU HAVE A PRIMARY DOCTOR --you should call your primary doctor and schedule and appointment IF YOU DO NOT HAVE A PRIMARY DOCTOR YOU CAN CALL OUR PHYSICIAN REFERRAL HOTLINE AT . IF YOU CAN NOT AFFORD TO SEE A PHYSICIAN YOU CAN CHOSE FROM THE FOLLOWING [facility]: [facility] [address] [place] [address] [facility] [address] [place] [address] [facility] + [facility] [address] [place] [address] [facility] URGENT C[facility]/SPECIALTIES Additional Instructions: FOLLOW UP WITH YOUR EMERGENCY SERVICES PROFESSIONAL TOMORROW FOR FURTHER EVALUATION AND TREATMENT AND AN ENDOSCOPY. Return to this facility if you are not improving as expected - fever, worsening abdominal pain, persistent vomiting, diarrhea, etc. HARLEY CHOI PA-C Jun 28, 2017 22:02
[2017-06-28 22:16] VITALS: BP 172/76; PULSE 71; RESP 20; TEMP 99.8
== END 2017-06-28 22:18 | disposition home or self-care (01) ==
LOC: FTE 17:57
DX: R10.13 Epigastric pain (principal); R11.10 Vomiting, unspecified
CPT/HCPCS: 36415; 80053; 83690; 85025; 96374; 96375; 96376; 99284; C9113; J2270; J2405; J7030

== ENCOUNTER 2017-06-30 14:07 | Emergency (ER) | payer BC ==
[~2017-06-30] VITALS: Ht 157.5 cm; Wt 78.0 kg
[~2017-06-30 14:07] MED LIST changes: +ACET500C5 PO; +PANT40TA3 PO
[2017-06-30 14:16] VITALS: Ht 157.5 cm; Wt 78.0 kg
[2017-06-30] MEDS ORDERED: SOD CHLORIDE 0.9% 1,000 ML IV STA (14:35)
[2017-06-30] MEDS ORDERED: FAMOTIDINE 20 MG INJ IV STA (14:35)
[2017-06-30] MEDS ORDERED: LIDOCAINE/MYLANTA 40 ML BTL PO STA (14:35)
[2017-06-30] MEDS ORDERED: ONDANSETRON 4 MG INJ IV STA (14:35)
[2017-06-30] MEDS ORDERED: morphine 4 MG/ML VIAL IV STA ×2 (14:35)
[2017-06-30 15:18] LABS: BASOPHIL # 0.1 10^3/ul (0.0-0.1); BASOPHILS % 0.4 % (0.0-2.0); HEMATOCRIT 45.6 % (42.0-52.0); HEMOGLOBIN 16.3 g/dl (14.0-18.0); LYMPHOCYTES # 0.9 10^3/ul (0.8-2.9); LYMPHOCYTES % 6.9 % (15.0-51.0); MEAN CORPUSCULAR HEMOGLOBIN 29.2 pg (29.0-33.0); MEAN CORPUSCULAR HGB CONC 35.7 g/dl (32.0-37.0); MEAN CORPUSCULAR VOLUME 81.7 fl (82.0-101.0); MEAN PLATELET VOLUME 9.5 fl (7.4-10.4); MONOCYTE # 0.5 10^3/ul (0.3-0.9); MONOCYTES % 3.3 % (0.0-11.0); NEUTROPHIL # 12.2 10^3/ul (1.6-7.5); PLATELET COUNT 417 10^3/UL (140-415); RED BLOOD COUNT 5.58 10^6/ul (4.70-6.10); RED CELL DISTRIBUTION WIDTH 11.8 % (11.5-14.5); WHITE BLOOD COUNT 13.7 10^3/ul (4.8-10.8)
[2017-06-30 15:34] LABS: ALBUMIN 5.5 g/dl (3.3-4.9); ALBUMIN/GLOBULIN RATIO 1.66; BILIRUBIN,INDIRECT 0.4 mg/dl (0-1.1); BILIRUBIN,TOTAL 0.4 mg/dl (0.2-1.3); CALCIUM 10.2 mg/dl (8.4-10.2); CREATININE 0.76 mg/dl (0.61-1.24); POTASSIUM 3.6 mmol/L (3.5-5.1); TOTAL PROTEIN 8.8 g/dl (6.1-8.1)
[2017-06-30 15:35] LABS: ADD UMIC YES; UR ASCORBIC ACID 20 mg/dL (NEGATIVE); UR BILIRUBIN (Dip) NEGATIVE (NEGATIVE); UR BLOOD (Dip) NEGATIVE (NEGATIVE); UR CLARITY CLOUDY (CLEAR); UR COLOR YELLOW (YELLOW); UR GLUCOSE (Dip) NEGATIVE (NEGATIVE); UR KETONES (Dip) NEGATIVE (NEGATIVE); UR LEUKOCYTE ESTERASE (Dip) NEGATIVE Leu/ul (NEGATIVE); UR MUCUS FEW /HPF (NONE SEEN); UR NITRITE (Dip) NEGATIVE (NEGATIVE); UR RBC 0 /HPF (0-5); UR SPECIFIC GRAVITY (Dip) 1.017 (1.003-1.030); UR TOTAL PROTEIN (Dip) NEGATIVE (NEGATIVE); UR UROBILINOGEN (Dip) NEGATIVE (NEGATIVE)
[2017-06-30] MEDS ORDERED: FAMO-96 PO (16:48)
[2017-06-30] MEDS ORDERED: ACET-2047 PO (16:49)
[2017-06-30 17:06] VITALS: BP 175/79; PULSE 72; RESP 22; TEMP 98.9
--- NOTE | 2017-06-30 19:22 | ERD ---
ER Documentation Chief Complaint Date/Time DATE: 06/30/17 TIME: 19:16 Chief Complaint ap with vomiting, multiple visits w/ same HPI 22 year old male presents to the emergency department complaining of epigastric pain status post drinking coffee couple hours prior to being seen. Patient has been here numerous times before with same complaint. He has an appointment to see PCP tomorrow. Patient states pain is severe. He admits to nausea, denies fever, vomiting and diarrhea. Patient denies taking any medications. Denies alcohol and drugs ROS All systems reviewed and are negative except as per history of present illness. Medications Home Meds Active Scripts Acetaminophen* (Acetaminophen*) 650 Mg Tablet, 650 MG PO Q6H Y for PAIN AND OR ELEVATED TEMP, #30 TAB Prov:ESTEFANY HERNANDEZ PA-C 06/30/17 Famotidine* (Pepcid*) 20 Mg Tablet, 20 MG PO DAILY, #30 TAB Prov:ESTEFANY HERNANDEZ PA-C 06/30/17 Ondansetron (Ondansetron Odt) 4 Mg Tab.rapdis, 4 MG PO Q6H Y for NAUSEA AND/OR VOMITING, #10 TAB Prov:HARLEY CHOI PA-C 06/28/17 Pantoprazole* (Protonix*) 40 Mg Tablet., 40 MG PO DAILY, #20 TAB Prov:HARLEY CHOI PA-C 06/28/17 Acetaminophen* (Tylophen*) 500 Mg Capsule, 1 CAP PO Q6H Y for PAIN AND OR ELEVATED TEMP, #20 CAP Prov:HARLEY CHOI PA-C 06/28/17 Dicyclomine Hcl* (Bentyl*) 10 Mg Capsule, 10 MG PO TID for PAIN, #10 CAP Prov:KASHIF LUCAS DO 06/12/17 Ondansetron (Ondansetron Odt) 4 Mg Tab.rapdis, 4 MG PO Q6H Y for NAUSEA AND/OR VOMITING, #10 TAB Prov:KASHIF LUCAS DO 06/12/17 Naproxen* (Naproxen*) 500 Mg Tablet, 500 MG PO BID Y for PAIN, #20 TAB Prov:KASHIF LUCAS DO 06/12/17 Omeprazole* (Omeprazole*) 20 Mg Capsule., 20 MG PO DAILY, #30 Prov:JENNIFER VICTOR PA-C 05/18/17 Ondansetron (Ondansetron Odt) 4 Mg Tab.rapdis, 4 MG PO Q6H Y for NAUSEA AND/OR VOMITING, #10 TAB Prov:JENNIFER VICTOR PA-C 05/18/17 Allergies Allergies: Coded Allergies: No Known Allergies (Verified Allergy, Mild, 06/12/17) PMhx/Soc Medical and Surgical Hx: pt denies Medical Hx, pt denies Surgical Hx History of Surgery: No Anesthesia Reaction: No Hx Neurological Disorder: No Hx Respiratory Disorders: No Hx Cardiac Disorders: No Hx Psychiatric Problems: No Hx Miscellaneous Medical Probl: Yes (Gastritis) Hx Alcohol Use: No Hx Substance Use: Yes (MARIJUANA) Hx Tobacco Use: No Smoking Status: Never smoker Physical Exam Vitals Vital Signs Date Time Temp Pulse Resp B/P Pulse Ox O2 Delivery O2 Flow Rate FiO2 06/30/17 17:06 98.9 72 22 175/79 99 Room Air 06/30/17 14:16 98.2 62 20 140/79 99 Physical Exam GENERAL: well-developed/well-nourished, in no apparent distress, non-toxic appearing HENT: NC/AT, moist mucous membranes EYES: Conjunctiva normal NECK: Supple, no lymphadenopathy PULM: CTA bilaterally, no rales, rhonchi, or wheezing heard CV: Normal S1S2, RRR, good capillary refill GI: Soft, non-distended, tender to palpation epigastric Normal bowel sounds, no masses or organomegaly felt on exam No gross peritonitis, no bruits Negative Rovsing, negative Gottlieb, negative McBurney's point, Negative CVAT BACK: No masses EXT: No clubbing, cyanosis, or edema NEURO: Alert and Orientated SKIN: Intact, normal turgor PSYCH: Normal mood and mentation Result Diagram: 06/30/17 1455 06/30/17 1455 Results 24 hrs Laboratory Tests Test 06/30/17 14:55 White Blood Count 13.710^3/ul Red Blood Count 5.5810^6/ul Hemoglobin 16.3g/dl Hematocrit 45.6% Mean Corpuscular Volume 81.7fl Mean Corpuscular Hemoglobin 29.2pg Mean Corpuscular Hemoglobin Concent 35.7g/dl Red Cell Distribution Width 11.8% Platelet Count 65805^3/UL Mean Platelet Volume 9.5fl Neutrophils % 89.0% Lymphocytes % 6.9% Monocytes % 3.3% Eosinophils % 0.0% Basophils % 0.4% Nucleated Red Blood Cells % 0.0/100WBC Neutrophils # 12.210^3/ul Lymphocytes # 0.910^3/ul Monocytes # 0.510^3/ul Eosinophils # 0.010^3/ul Basophils # 0.110^3/ul Nucleated Red Blood Cells # 0.010^3/ul Urine Color YELLOW Urine Clarity CLOUDY Urine pH 7.0 Urine Specific [place] 1.017 Urine Ketones NEGATIVEmg/dL Urine Nitrite NEGATIVEmg/dL Urine Bilirubin NEGATIVEmg/dL Urine Urobilinogen NEGATIVEmg/dL Urine Leukocyte Esterase NEGATIVELeu/ul Urine Microscopic RBC 0/HPF Urine Microscopic WBC 0/HPF Urine Mucus FEW/HPF Urine Hemoglobin NEGATIVEmg/dL Urine Glucose NEGATIVEmg/dL Urine Total Protein NEGATIVEmg/dl Sodium Level 143mmol/L Potassium Level 3.6mmol/L Chloride Level 98mmol/L Carbon Dioxide Level 23mmol/L Anion Gap 26 Blood Urea Nitrogen 7mg/dl Creatinine 0.76mg/dl Glucose Level 121mg/dl Calcium Level 10.2mg/dl Total Bilirubin 0.4mg/dl Direct Bilirubin 0.00mg/dl Indirect Bilirubin 0.4mg/dl Aspartate Amino Transf (AST/SGOT) 26IU/L Alanine Aminotransferase (ALT/SGPT) 33IU/L Alkaline Phosphatase 95IU/L Total Protein 8.8g/dl Albumin 5.5g/dl Globulin 3.30g/dl Albumin/Globulin Ratio 1.66 Lipase 29U/L Current Medications Medications (Trade) Dose Ordered Sig/Rosamaria Route PRN Reason Start Time Stop Time Status Last Admin Dose Admin Sodium Chloride (NS) 1,000 ml @ 1,000 mls/hr Q1H STAT IV 06/30/17 14:35 06/30/17 15:34 DC 06/30/17 15:08 Morphine Sulfate (morphine) 4 mg ONCE STAT IV 06/30/17 14:35 06/30/17 14:38 DC 06/30/17 15:08 Ondansetron HCl (Zofran Inj) 4 mg ONCE STAT IV 06/30/17 14:35 06/30/17 14:38 DC 06/30/17 15:07 Famotidine (Pepcid Iv) 20 mg ONCE STAT IV 06/30/17 14:35 06/30/17 14:38 DC 06/30/17 15:07 Miscellaneous Medication (Gi Cocktail (2)) 40 ml ONCE STAT PO 06/30/17 14:35 06/30/17 14:38 DC 06/30/17 15:08 Morphine Sulfate (morphine) 4 mg ONCE STAT IV 06/30/17 14:35 06/30/17 14:38 DC 06/30/17 16:37 Procedures/MDM 22 year old male presents to the emergency department complaining of epigastric pain status post drinking coffee couple hours prior to being seen. Likely gastritis. Low suspicion for pancreatitis, appendicitis, diverticulitis ACS. Patient has been here numerous times before with same complaint. He has an appointment to see PCP tomorrow. I have reviewed patient's past chart and the past couple weeks he has received a CT scan which was unremarkable. He has received a gallbladder ultrasound which is unremarkable. Previous labs were within normal limits. In the ED, saline lock was placed. Patient was given a liter fluids, morphine, Zofran, Protonix and GI cocktail. Patient had some improvement in pain. I discussed with him to continue to see his primary care physician tomorrow to get a referral to see a gas engine performance engineer. Patient stable to be discharged home. Discussed to return to the ER for any worsening sinus symptoms. Patient and father understood and agreed plan Departure Diagnosis: Primary Impression: Epigastric pain Condition: Stable Patient Instructions: Gerd (Adult), Epigastric Pain (Uncertain Cause) Additional Instructions: Visite a eden milligan para un EXAMEN.Regrese a estas instalaciones si no se mejora sheree esperbamos o sheree le dijimos. Regrese a estas instalaciones si no se mejora sheree esperbamos o sheree le dijimos. ESTEFANY HERNANDEZ PA-C Jun 30, 2017 19:22
== END 2017-06-30 17:07 | disposition home or self-care (01) ==
LOC: FTE 14:07
DX: R10.13 Epigastric pain (principal); R11.2 Nausea with vomiting, unspecified
CPT/HCPCS: 36415; 80053; 81001; 83690; 85025; 96374; 96375; 96376; 99284; J2270; J2405; J7030

== ENCOUNTER 2017-09-06 16:53 | Emergency (ER) | payer BC ==
[~2017-09-06] VITALS: Wt 78.0 kg
[~2017-09-06 16:53] MED LIST changes: +ACET-2047 PO; +FAMO-96 PO
--- NOTE | 2017-09-06 17:30 | ERA ---
ER Documentation Chief Complaint Date/Time DATE: 09/06/17 TIME: 17:30 Chief Complaint ap HPI The patient is a 22-year-old male, presenting to the ER because of recurrent epigastric abdominal pain at 6 AM today, associated with vomiting and diarrhea, denies hematemesis, hematochezia. He has presented to the ER multiple times for similar symptoms. He had gallbladder ultrasound and abdominal pelvic CT on June 11, 2017 unremarkable. he is waiting to see prop sawyer for endoscopy. He denies fever, chills, syncope, near syncope, neck pain, chest pain, dysuria. He denies smoking or drinking, but smoking marijuana Past medical history: Gastritis Past Surgical history: None ROS All systems reviewed and are negative except as per history of present illness. Medications Home Meds Active Scripts Pantoprazole Sodium (Protonix) 40 Mg Granpkt., 40 MG PO DAILY, #14 Prov:DI MILLER MD 09/06/17 Ondansetron (Ondansetron Odt) 4 Mg Tab.rapdis, 4 MG PO Q6H Y for NAUSEA AND/OR VOMITING, #10 TAB Prov:DI MILLER MD 09/06/17 Discontinued Scripts Acetaminophen* (Acetaminophen*) 650 Mg Tablet, 650 MG PO Q6H Y for PAIN AND OR ELEVATED TEMP, #30 TAB Prov:ESTEFANY HERNANDEZ PA-C 06/30/17 Famotidine* (Pepcid*) 20 Mg Tablet, 20 MG PO DAILY, #30 TAB Prov:ESTEFANY HERNANDEZ PA-C 06/30/17 Ondansetron (Ondansetron Odt) 4 Mg Tab.rapdis, 4 MG PO Q6H Y for NAUSEA AND/OR VOMITING, #10 TAB Prov:HARLEY CHOI PA-C 06/28/17 Pantoprazole* (Protonix*) 40 Mg Tablet., 40 MG PO DAILY, #20 TAB Prov:HARLEY CHOI PA-C 06/28/17 Acetaminophen* (Tylophen*) 500 Mg Capsule, 1 CAP PO Q6H Y for PAIN AND OR ELEVATED TEMP, #20 CAP Prov:HARLEY CHOI PA-C 06/28/17 Dicyclomine Hcl* (Bentyl*) 10 Mg Capsule, 10 MG PO TID for PAIN, #10 CAP Prov:GREEN,KASHIF DO 06/12/17 Ondansetron (Ondansetron Odt) 4 Mg Tab.rapdis, 4 MG PO Q6H Y for NAUSEA AND/OR VOMITING, #10 TAB Prov:KASHIF LUCAS DO 06/12/17 Naproxen* (Naproxen*) 500 Mg Tablet, 500 MG PO BID Y for PAIN, #20 TAB Prov:KASHIF LUCAS DO 06/12/17 Omeprazole* (Omeprazole*) 20 Mg Capsule.dr, 20 MG PO DAILY, #30 Prov:JENNIFER VICTOR PA-C 05/18/17 Ondansetron (Ondansetron Odt) 4 Mg Tab.rapdis, 4 MG PO Q6H Y for NAUSEA AND/OR VOMITING, #10 TAB Prov:JENNIFER VICTOR PA-C 05/18/17 Allergies Allergies: Coded Allergies: No Known Allergies (Verified Allergy, Mild, 09/06/17) PMhx/Soc History of Surgery: No Anesthesia Reaction: No Hx Neurological Disorder: No Hx Respiratory Disorders: No Hx Cardiac Disorders: No Hx Psychiatric Problems: No Hx Miscellaneous Medical Probl: Yes (Gastritis) Hx Alcohol Use: No Hx Substance Use: Yes (MARIJUANA) Hx Tobacco Use: No Physical Exam Vitals Vital Signs Date Time Temp Pulse Resp B/P Pulse Ox O2 Delivery O2 Flow Rate FiO2 09/06/17 17:12 100.7 79 24 160/78 99 Physical Exam Const: No acute distress. Head: Atraumatic. Eyes: Normal Conjunctiva. ENT: Normal External Ears, Nose and Mouth. Neck: Full range of motion. No meningismus. Resp: Clear to auscultation bilaterally. Cardio: Regular rate and rhythm. Abd: Soft, non distended, normal bowel sounds, vague and mild epigastric abdominal discomfort. No rigidity, rebound, CVA tenderness Skin: No petechiae or rashes. Back: No midline or flank tenderness. Ext: No cyanosis, or edema. Neur: Awake and alert. No focal deficit Psych: Normal Mood and Affect. Result Diagram: 09/06/17 1805 09/06/17 180 Results 24 hrs Laboratory Tests Test 09/06/17 18:05 09/06/17 18:45 09/06/17 18:57 White Blood Count 13.110^3/ul Red Blood Count 5.1610^6/ul Hemoglobin 15.1g/dl Hematocrit 42.1% Mean Corpuscular Volume 81.6fl Mean Corpuscular Hemoglobin 29.3pg Mean Corpuscular Hemoglobin Concent 35.9g/dl Red Cell Distribution Width 11.9% Platelet Count 69630^3/UL Mean Platelet Volume 9.4fl Neutrophils % 91.7% Lymphocytes % 5.2% Monocytes % 2.5% Eosinophils % 0.0% Basophils % 0.2% Nucleated Red Blood Cells % 0.0/100WBC Neutrophils # 12.010^3/ul Lymphocytes # 0.710^3/ul Monocytes # 0.310^3/ul Eosinophils # 0.010^3/ul Basophils # 0.010^3/ul Nucleated Red Blood Cells # 0.010^3/ul Sodium Level 141mmol/L Potassium Level 3.8mmol/L Chloride Level 103mmol/L Carbon Dioxide Level 20mmol/L Anion Gap 22 Blood Urea Nitrogen 10mg/dl Creatinine 0.71mg/dl Glucose Level 159mg/dl Calcium Level 10.4mg/dl Total Bilirubin 0.6mg/dl Direct Bilirubin 0.00mg/dl Indirect Bilirubin 0.6mg/dl Aspartate Amino Transf (AST/SGOT) 22IU/L Alanine Aminotransferase (ALT/SGPT) 32IU/L Alkaline Phosphatase 109IU/L Total Protein 9.2g/dl Albumin 5.6g/dl Globulin 3.60g/dl Albumin/Globulin Ratio 1.55 Lipase 22U/L Ethyl Alcohol Level < 10.0mg/dl Urine Opiates Screen Negative Urine Barbiturates Negative Urine Amphetamines Screen Negative Urine Benzodiazepines Screen Negative Urine Cocaine Screen Negative Urine Cannabinoids Positive Bedside Urine pH (LAB) 8.5 Bedside Urine Protein (LAB) 2+ Bedside Urine Glucose (UA) Negative Bedside Urine Ketones (LAB) Trace Bedside Urine Blood Trace-intact Bedside Urine Nitrite (LAB) Negative Bedside Urine Leukocyte Esterase (L Negative Current Medications Medications (Trade) Dose Ordered Sig/Rosamaria Route PRN Reason Start Time Stop Time Status Last Admin Dose Admin Sodium Chloride (NS) 1,000 ml @ 1,000 mls/hr Q1H STAT IV 09/06/17 17:39 09/06/17 18:38 DC 09/06/17 18:32 Ondansetron HCl (Zofran Inj) 4 mg ONCE STAT IV 09/06/17 17:39 09/06/17 17:42 DC 09/06/17 18:32 Ketorolac Tromethamine (Toradol) 30 mg ONCE STAT IV 09/06/17 18:08 09/06/17 18:09 DC 09/06/17 18:33 Lorazepam 1 mg 1 mg ONCE ONCE IV 09/06/17 19:30 09/06/17 19:31 DC 09/06/17 19:41 Sodium Chloride (NS) 1,000 ml @ 1,000 mls/hr Q1H ONCE IV 09/06/17 20:00 09/06/17 20:59 09/06/17 19:42 Procedures/MDM . MEDICAL MAKING DECISION: The patient is 22-year-old male, presenting to the ER because of recurrent epigastric abdominal pain, he was treated with 1 L normal saline for clinical dehydration, Zofran 4 mg IV for nausea and Toradol 30 minute IV for pain and Ativan 1 mg IV for anxiety with good response. He does have mild leukocytosis, however I do not suspect any acute abdominal pathology. This most likely due to stress and/or margination. On multiple reevaluation, he felt well, resting comfortably. He is stable for outpatient follow-up. I do not think he needs repeat ultrasound or CT scan of the abdomen. Departure Diagnosis: Primary Impression: Abdominal pain Additional Impression: Marijuana abuse Condition: Good Comments He was discharged with Zofran and Protonix and advised to return in 8 hours for reevaluation, sooner if any concern The patient's blood pressure was elevated (>120/80) but appears stable without evidence of hypertension emergency or urgency. The patient was counseled about the risks of hypertension and urged to pursue outpatient monitoring and therapy within a week with their primary care physician. DI MILLER MD Sep 06, 2017 17:30
[2017-09-06] MEDS ORDERED: SOD CHLORIDE 0.9% 1,000 ML IV STA (17:39)
[2017-09-06] MEDS ORDERED: ONDANSETRON 4 MG INJ IV STA (17:39)
[2017-09-06] MEDS ORDERED: KETOROLAC 30 MG INJ IV STA (18:08)
[2017-09-06 18:16] LABS: BASOPHILS % 0.2 % (0.0-2.0); HEMATOCRIT 42.1 % (42.0-52.0); HEMOGLOBIN 15.1 g/dl (14.0-18.0); LYMPHOCYTES # 0.7 10^3/ul (0.8-2.9); LYMPHOCYTES % 5.2 % (15.0-51.0); MEAN CORPUSCULAR HEMOGLOBIN 29.3 pg (29.0-33.0); MEAN CORPUSCULAR HGB CONC 35.9 g/dl (32.0-37.0); MEAN CORPUSCULAR VOLUME 81.6 fl (82.0-101.0); MEAN PLATELET VOLUME 9.4 fl (7.4-10.4); MONOCYTE # 0.3 10^3/ul (0.3-0.9); MONOCYTES % 2.5 % (0.0-11.0); NEUTROPHILS % 91.7 % (39.0-77.0); PLATELET COUNT 379 10^3/UL (140-415); RED BLOOD COUNT 5.16 10^6/ul (4.70-6.10); RED CELL DISTRIBUTION WIDTH 11.9 % (11.5-14.5); WHITE BLOOD COUNT 13.1 10^3/ul (4.8-10.8)
[2017-09-06 18:42] LABS: ALANINE AMINOTRANSFERASE 32 IU/L (13-69); ALBUMIN 5.6 g/dl (3.3-4.9); ALBUMIN/GLOBULIN RATIO 1.55; ALKALINE PHOSPHATASE 109 IU/L (42-121); ANION GAP 22 (8-16); ASPARTATE AMINO TRANSFERASE 22 IU/L (15-46); BILIRUBIN,INDIRECT 0.6 mg/dl (0-1.1); BILIRUBIN,TOTAL 0.6 mg/dl (0.2-1.3); BLOOD UREA NITROGEN 10 mg/dl (7-20); CALCIUM 10.4 mg/dl (8.4-10.2); CARBON DIOXIDE 20 mmol/L (21-31); CHLORIDE 103 mmol/L (97-110); CREATININE 0.71 mg/dl (0.61-1.24); GLUCOSE 159 mg/dl (70-220); POTASSIUM 3.8 mmol/L (3.5-5.1); SODIUM 141 mmol/L (135-144); TOTAL PROTEIN 9.2 g/dl (6.1-8.1)
[2017-09-06 18:44] LABS: ETHANOL < 10.0 mg/dl
[2017-09-06 18:48] LABS: URINE BLOOD (Dip) POC Trace-intact (NEGATIVE)
[2017-09-06 19:17] LABS: BARBITURATES Negative (NEGATIVE); BENZODIAZEPINES Negative (NEGATIVE); CANNABINOIDS Positive (NEGATIVE); COCAINE Negative (NEGATIVE); OPIATES Negative (NEGATIVE)
[2017-09-06] MEDS ORDERED: LORAZEPAM 2 MG INJ IV ONE (19:30)
[2017-09-06] MEDS ORDERED: ONDA4TAB14 PO (19:46)
[2017-09-06] MEDS ORDERED: PANT40SU PO (19:47)
[2017-09-06] MEDS ORDERED: SOD CHLORIDE 0.9% 1,000 ML IV ONE (20:00)
[2017-09-06 20:58] VITALS: BP 120/56; PULSE 114; RESP 16; TEMP 98.1
== END 2017-09-06 21:01 | disposition home or self-care (01) ==
LOC: E/R 16:53
DX: F12.10 Cannabis abuse, uncomplicated (principal)
CPT/HCPCS: 80053; 80306; 80307; 81003; 83690; 85025; 96361; 96374; 96375; 99284; J1885; J2060; J2405; J7030

== ENCOUNTER 2017-11-13 20:05 | Emergency (ER) | payer BC ==
[~2017-11-13] VITALS: Ht 172.7 cm; Wt 80.0 kg
[~2017-11-13 20:05] MED LIST changes: -ACET-2047 PO; -ACET500C5 PO; -DICY10CA60 PO; -FAMO-96 PO; -NAPR-688 PO; -OMEP20CA16 PO; +PANT40SU PO; -PANT40TA3 PO
[2017-11-13 20:11] VITALS: Ht 172.7 cm; Wt 80.0 kg
[2017-11-13 22:18] VITALS: BP 142/91
[2017-11-13] MEDS ORDERED: ONDANSETRON 4 MG INJ IV STA (22:35)
[2017-11-13] MEDS ORDERED: FAMOTIDINE 20 MG INJ IV STA (22:35)
[2017-11-13] MEDS ORDERED: SOD CHLORIDE 0.9% 1,000 ML IV STA (22:35)
[2017-11-13] MEDS ORDERED: morphine 4 MG/ML VIAL IV STA (22:35)
--- NOTE | 2017-11-13 23:26 | ERD ---
ER Documentation Chief Complaint Chief Complaint Abd pain x since morning, n/v x since morning HPI 22-year-old male presents here to emergency department for complaints of generalized abdominal pain, vomiting that started today. Patient also diarrhea episodes. Patient started to have symptoms of the eating Dg's. Patient is complaining of,6/10 scale, with vomiting, blood in the vomit, patient does not have any blood in stool or black stool. ROS All systems reviewed and are negative except as per history of present illness. Medications Home Meds Active Scripts Pantoprazole Sodium (Protonix) 40 Mg Granpkt.dr, 40 MG PO DAILY, #14 Prov:DI MILLER MD 09/06/17 Ondansetron (Ondansetron Odt) 4 Mg Tab.rapdis, 4 MG PO Q6H Y for NAUSEA AND/OR VOMITING, #10 TAB Prov:DI MILLER MD 09/06/17 Allergies Allergies: Coded Allergies: No Known Allergies (Verified Allergy, Mild, 09/06/17) PMhx/Soc Medical and Surgical Hx: pt denies Surgical Hx History of Surgery: No Anesthesia Reaction: No Hx Neurological Disorder: No Hx Respiratory Disorders: No Hx Cardiac Disorders: No Hx Psychiatric Problems: No Hx Miscellaneous Medical Probl: Yes (Gastritis) Hx Alcohol Use: No Hx Substance Use: Yes (MARIJUANA) Hx Tobacco Use: No Smoking Status: Unknown if ever smoked FmHx Family History: No coronary disease, No diabetes, No other Physical Exam Vitals Vital Signs Date Time Temp Pulse Resp B/P Pulse Ox O2 Delivery O2 Flow Rate FiO2 11/13/17 22:18 142/91 11/13/17 20:11 99.2 65 20 176/104 99 Physical Exam GENERAL: The patient is well developed and appropriate for usual state of health, in no apparent distress. CHEST: Clear to auscultation bilaterally. There are no rales, wheezes or rhonchi. HEART: Regular rate and rhythm. No murmurs, clicks, rubs or gallops. No S3 or S4. ABDOMEN: Soft, nontender and nondistended. Hyperactive bowel sounds. No rebound or guarding. No gross peritonitis. No gross organomegaly or masses. No Gottlieb sign or McBurney point tenderness. BACK: No midline or flank tenderness. EXTREMITIES: Equal pulses bilaterally. There is no peripheral clubbing, cyanosis or edema. No focal swelling or erythema. Full range of motion. Grossly neurovascularly intact. NEURO: Alert and oriented. Cranial nerves 2-12 intact. Motor strength in all 4 extremities with 5/5 strength. Sensation grossly intact. Normal speech and gait. SKIN: There is no apparent rash or petechia. The skin is warm and dry. HEMATOLOGIC AND LYMPHATIC: There is no evidence of excessive bruising or lymphedema. No gross cervical, axillary, or inguinal lymphadenopathy. Result Diagram: 11/14/17 0010 11/14/17 001 Results 24 hrs Laboratory Tests Test 11/14/17 00:10 11/14/17 01:57 White Blood Count 8.810^3/ul Red Blood Count 5.4510^6/ul Hemoglobin 15.9g/dl Hematocrit 45.6% Mean Corpuscular Volume 83.7fl Mean Corpuscular Hemoglobin 29.2pg Mean Corpuscular Hemoglobin Concent 34.9g/dl Red Cell Distribution Width 12.1% Platelet Count 20873^3/UL Mean Platelet Volume 9.8fl Neutrophils % 73.3% Lymphocytes % 18.3% Monocytes % 7.9% Eosinophils % 0.0% Basophils % 0.2% Nucleated Red Blood Cells % 0.0/100WBC Neutrophils # 6.410^3/ul Lymphocytes # 1.610^3/ul Monocytes # 0.710^3/ul Eosinophils # 0.010^3/ul Basophils # 0.010^3/ul Nucleated Red Blood Cells # 0.010^3/ul Sodium Level 144mmol/L Potassium Level 4.2mmol/L Chloride Level 99mmol/L Carbon Dioxide Level 28mmol/L Anion Gap 21 Blood Urea Nitrogen 8mg/dl Creatinine 0.74mg/dl Glucose Level 126mg/dl Calcium Level 10.6mg/dl Total Bilirubin 0.4mg/dl Direct Bilirubin 0.00mg/dl Indirect Bilirubin 0.4mg/dl Aspartate Amino Transf (AST/SGOT) 22IU/L Alanine Aminotransferase (ALT/SGPT) 28IU/L Alkaline Phosphatase 83IU/L Total Protein 9.1g/dl Albumin 5.3g/dl Globulin 3.80g/dl Albumin/Globulin Ratio 1.39 Lipase 61U/L Bedside Urine pH (LAB) 6.5 Bedside Urine Protein (LAB) 1+ Bedside Urine Glucose (UA) Negative Bedside Urine Ketones (LAB) Negative Bedside Urine Blood Trace-intact Bedside Urine Nitrite (LAB) Negative Bedside Urine Leukocyte Esterase (L Negative Current Medications Medications (Trade) Dose Ordered Sig/Rosamaria Route PRN Reason Start Time Stop Time Status Last Admin Dose Admin Sodium Chloride (NS) 1,000 ml @ 1,000 mls/hr Q1H STAT IV 11/13/17 22:35 11/13/17 23:34 DC 11/14/17 00:15 Morphine Sulfate (morphine) 4 mg ONCE STAT IV 11/13/17 22:35 11/13/17 22:36 DC 11/14/17 00:15 Ondansetron HCl (Zofran Inj) 4 mg ONCE STAT IV 11/13/17 22:35 11/13/17 22:36 DC 11/14/17 00:14 Famotidine (Pepcid Iv) 20 mg ONCE STAT IV 11/13/17 22:35 11/13/17 22:36 DC 11/14/17 00:14 Patient was given medication for pain here in emergency department, after treatment, patient verbalized feeling much better. Patient's pain is improved. Patient was given Zofran here in the emergency department. After treatment, patient was able to tolerate po fluids here in the emergency department without any vomiting. There is no signs and symptoms of dehydration. Normal saline IV bolus was given here in emergency department for rehydration, patient tolerated IV fluids. PROCEDURE: CT abdomen and pelvis without contrast. CLINICAL INDICATION: Abdominal pain TECHNIQUE: CT scan of the abdomen and pelvis without contrast was performed. Sagittal and coronal reformatted images were obtained from the axial source images. One or more of the following dose reduction techniques were used: Automated exposure control, adjustment of the mA and/or kV according to patient size, use of iterative reconstruction technique. CTDI = 12.30 mGy; DLP = 749.30 mGy-cm COMPARISON: 06/07/2016 FINDINGS: Visualized lower thorax: The lung bases are clear. There is no evidence for pleural effusion. Liver, gallbladder, pancreas and spleen: The liver is normal and size, contour and attenuation. There is no evidence for a liver mass or ductal dilatation. The gallbladder is unremarkable. No common bile duct abnormality is demonstrated. The pancreas is unremarkable. The spleen is normal in size. Adrenal glands and genitourinary system: The adrenal glands are normal bilaterally. The kidneys are normal and size, contour and attenuation with no evidence for masses, calculi or hydronephrosis. The ureters are unremarkable. No urinary bladder abnormality is demonstrated. The prostate gland is normal in size. The visualized scrotum shows no abnormality. Gastrointestinal system: The stomach is normal in caliber with no abnormality of significance. The small bowel is normal in caliber with no ileus, obstruction or wall thickening. The appendix and surrounding fat are within the limits of normal. The colon shows no evidence for wall thickening or acute abnormality. There is no evidence for colitis or diverticulitis. Peritoneum, retroperitoneum, lymph nodes and vessels: The abdominal aorta is normal in caliber. There is no evidence for atherosclerotic calcification. The inferior vena cava is unremarkable. There is no evidence for adenopathy or mass. There is no ascites. Osseous structures and musculoskeletal findings: There is no fracture, lytic or blastic lesion. No muscular abnormality or soft tissue pathology is present. No pneumoperitoneum is present. RPTAT:HJJR IMPRESSION: Unremarkable CT scan of the abdomen and pelvis without contrast without findings to explain the patient's provided history. Physician Albino Date Time Electronically viewed and signed by Physician Albino on 11/13/2017 23:53 JR/ CC: RACHEL ECHOLS DIRECTOR [employer] Procedures/MDM Medical Decision Making: Patient symptoms was likely is consistent with viral gastroenteritis. No symptoms of dehydration, no active vomiting. There is low suspicion for abdominal emergencies at this time. Patients abdominal exam is normal at this time. Patients radiology exam does not show any abdominal emergencies at this time. There is low suspicion for appendicitis, cholecystitis , abdominal aortic aneurysms or peritonitis at this time. There is low suspicion for sepsis. Patient appears well and is hemodynamically stable. Disposition: Home. Condition: Stable Prescription Bentyl, Zofran, Tylenol ibuprofen Instructions: Patient is advised to take medications as prescribed. Patient is advised to rest, increase fluid intake and do brat diet for next 1-2 days and progress as tolerated. Patient is advised that if symptoms are worse, severe abdominal pain, uncontrolled vomiting, high fever, severe flank pain, worst signs and symptoms, to return to the emergency department immediately. Otherwise, patient can follow up with primary care doctor in 5-7 days. Disclaimer: Inadvertent spelling and grammatical errors are likely due to EHR/ dictation software use and do not reflect on the overall quality of patient care. Also, please note that the electronic time recorded on this note does not necessarily reflect the actual time of the patient encounter. Departure Diagnosis: Primary Impression: Gastroenteritis Condition: Stable Patient Instructions: Gastroenteritis, Viral (6Y-Adult) Additional Instructions: : Patient is advised to take medications as prescribed. Patient is advised to rest, increase fluid intake and do brat diet for next 1-2 days and progress as tolerated. Patient is advised that if symptoms are worse, severe abdominal pain , uncontrolled vomiting, high fever, severe flank pain, worst signs and symptoms , to return to the emergency department immediately. Otherwise, patient can follow up with primary care doctor in 5-7 days. RACHEL ECHOLS NP Nov 13, 2017 23:26
--- NOTE | 2017-11-13 23:53 | RADRPT ---
PROCEDURE: CT abdomen and pelvis without contrast. CLINICAL INDICATION: Abdominal pain TECHNIQUE: CT scan of the abdomen and pelvis without contrast was performed. Sagittal and coronal reformatted images were obtained from the axial source images. One or more of the following dose re duction techniques were used: Automated exposure control, adjustment of the mA and/or kV according t o patient size, use of iterative reconstruction technique. CTDI = 12.30 mGy; DLP = 749.30 mGy-cm COMPARISON: 06/07/2016 FINDINGS: Visualized lower thorax: The lung bases are clear. There is no evidence for pleural effusion. Liver, gallbladder, pancreas and spleen: The liver is normal and size, contour and attenuation. Th ere is no evidence for a liver mass or ductal dilatation. The gallbladder is unremarkable. No comm on bile duct abnormality is demonstrated. The pancreas is unremarkable. The spleen is normal in si ze. Adrenal glands and genitourinary system: The adrenal glands are normal bilaterally. The kidneys are normal and size, contour and attenuation with no evidence for masses, calculi or hydronephrosis. T he ureters are unremarkable. No urinary bladder abnormality is demonstrated. The prostate gland is normal in size. The visualized scrotum shows no abnormality. Gastrointestinal system: The stomach is normal in caliber with no abnormality of significance. The small bowel is normal in caliber with no ileus, obstruction or wall thickening. The appendix and s urrounding fat are within the limits of normal. The colon shows no evidence for wall thickening or acute abnormality. There is no evidence for colitis or diverticulitis. Peritoneum, retroperitoneum, lymph nodes and vessels: The abdominal aorta is normal in caliber. The re is no evidence for atherosclerotic calcification. The inferior vena cava is unremarkable. There is no evidence for adenopathy or mass. There is no ascites. Osseous structures and musculoskeletal findings: There is no fracture, lytic or blastic lesion. No muscular abnormality or soft tissue pathology is present. No pneumoperitoneum is present. RPTAT:HJJR IMPRESSION: Unremarkable CT scan of the abdomen and pelvis without contrast without findings to explain the paige ent's provided history. Physician Albino Date Time Electronically viewed and signed by Physician Albino on 11/13/2017 23:53 JR/
[2017-11-14 00:44] LABS: BASOPHILS % 0.2 % (0.0-2.0); HEMATOCRIT 45.6 % (42.0-52.0); HEMOGLOBIN 15.9 g/dl (14.0-18.0); LYMPHOCYTES # 1.6 10^3/ul (0.8-2.9); LYMPHOCYTES % 18.3 % (15.0-51.0); MEAN CORPUSCULAR HEMOGLOBIN 29.2 pg (29.0-33.0); MEAN CORPUSCULAR HGB CONC 34.9 g/dl (32.0-37.0); MEAN CORPUSCULAR VOLUME 83.7 fl (82.0-101.0); MEAN PLATELET VOLUME 9.8 fl (7.4-10.4); MONOCYTE # 0.7 10^3/ul (0.3-0.9); MONOCYTES % 7.9 % (0.0-11.0); NEUTROPHIL # 6.4 10^3/ul (1.6-7.5); NEUTROPHILS % 73.3 % (39.0-77.0); PLATELET COUNT 357 10^3/UL (140-415); RED BLOOD COUNT 5.45 10^6/ul (4.70-6.10); RED CELL DISTRIBUTION WIDTH 12.1 % (11.5-14.5); WHITE BLOOD COUNT 8.8 10^3/ul (4.8-10.8)
[2017-11-14 01:02] LABS: ALBUMIN 5.3 g/dl (3.3-4.9); ALBUMIN/GLOBULIN RATIO 1.39; BILIRUBIN,INDIRECT 0.4 mg/dl (0-1.1); BILIRUBIN,TOTAL 0.4 mg/dl (0.2-1.3); CALCIUM 10.6 mg/dl (8.4-10.2); CREATININE 0.74 mg/dl (0.61-1.24); POTASSIUM 4.2 mmol/L (3.5-5.1); TOTAL PROTEIN 9.1 g/dl (6.1-8.1)
[2017-11-14 01:55] LABS: URINE BLOOD (Dip) POC Trace-intact (NEGATIVE)
[2017-11-14] MEDS ORDERED: ONDA4TAB14 PO (02:06)
[2017-11-14] MEDS ORDERED: IBUP-1542 PO (02:06)
[2017-11-14] MEDS ORDERED: ACET500C5 PO (02:06)
[2017-11-14] MEDS ORDERED: DICY10CA60 PO (02:06)
== END 2017-11-14 02:36 | disposition home or self-care (01) ==
LOC: FTE 20:05
DX: K52.9 Noninfective gastroenteritis and colitis, unspecified (principal)
CPT/HCPCS: 36415; 74176; 80053; 81003; 83690; 85025; 96374; 96375; 99285; J2270; J2405; J7030

== ENCOUNTER 2017-11-17 15:11 | Emergency (ER) | payer BC ==
[~2017-11-17] VITALS: Ht 15.2 cm; Wt 90.0 kg
[~2017-11-17 15:11] MED LIST changes: +ACET500C5 PO; +DICY10CA60 PO; +IBUP-1542 PO
[2017-11-17 15:16] VITALS: Ht 15.2 cm; Wt 90.0 kg
[2017-11-17] MEDS ORDERED: CAPSAICIN 0.025% 60 GM CR TOP STA (16:17)
--- NOTE | 2017-11-17 16:23 | ERD ---
ER Documentation Chief Complaint Chief Complaint SEEN HERE ON Oct C/O SAME AP, DX GASTROENTERITIS HPI This is a 22-year-old male with known marijuana use and issues with nausea and gastritis, previously diagnosed with possible cannabinoid hyperemesis as well as gastroenteritis, seen here on November 13 for similar complaints as today, now presenting with continuyed generalized abdominal cramping and discomfort with nausea and nonbilious nonbloody vomiting. The patient continues to smoke marijuana through his abdominal pain. He does not know if his symptoms are associated with marijuana use. He has had these symptoms for years and has been seen by a blending coordinator as an outpatient. Despite outpatient treatment, he continues to have frequent exacerbations and ER visits. His last visit was November 13, 2017 where he had an unremarkable workup and was ultimately discharged. The patient denies fever or chills. The patient has had no headache or vision changes. The patient does not endorse neck or back pain. The patient denies lightheadedness or dizziness. The patient has had no chest pain or shortness of breath or trouble breathing. The patient denies changes to bowel movements or urination. The patient has had no focal deficits. The patient has had no weakness or numbness or tingling to the face or extremities. ROS All systems reviewed and are negative except as per history of present illness. Medications Home Meds Active Scripts Ondansetron (Ondansetron Odt) 4 Mg Tab.rapdis, 4 MG PO Q6H Y for NAUSEA AND/OR VOMITING, #30 TAB Prov:RACHEL ECHOLS NP 11/14/17 Ibuprofen* (Motrin*) 600 Mg Tab, 600 MG PO Q6H Y for PAIN AND OR ELEVATED TEMP, #30 TAB Prov:RACHEL ECHOLS. NON CDL DRIVER 11/14/17 Acetaminophen* (Tylophen*) 500 Mg Capsule, 1 CAP PO Q6H Y for PAIN AND OR ELEVATED TEMP, #20 CAP Prov:RACHEL ECHOLS. ISABEL 11/14/17 Dicyclomine Hcl* (Bentyl*) 10 Mg Capsule, 20 MG PO QID, #20 CAP Prov:RACHEL ECHOLS NP 11/14/17 Pantoprazole Sodium (Protonix) 40 Mg , 40 MG PO DAILY, #14 Prov:DI MILLER MD 09/06/17 Ondansetron (Ondansetron Odt) 4 Mg Tab.rapdis, 4 MG PO Q6H Y for NAUSEA AND/OR VOMITING, #10 TAB Prov:DI MILLER MD 09/06/17 Allergies Allergies: Coded Allergies: No Known Allergies (Verified Allergy, Mild, 09/06/17) PMhx/Soc History of Surgery: No Anesthesia Reaction: No Hx Neurological Disorder: No Hx Respiratory Disorders: No Hx Cardiac Disorders: No Hx Psychiatric Problems: No Hx Miscellaneous Medical Probl: Yes (Gastritis) Hx Alcohol Use: No Hx Substance Use: Yes (MARIJUANA) Hx Tobacco Use: No FmHx Family History: No coronary disease, No diabetes Physical Exam Vitals Vital Signs Date Time Temp Pulse Resp B/P Pulse Ox O2 Delivery O2 Flow Rate FiO2 11/17/17 18:59 98.2 79 20 131/77 99 Room Air 11/17/17 15:16 98.1 78 18 158/89 99 Physical Exam Const: No apparent distress, well-developed, well-nourished Head: Normocephalic, Atraumatic Eyes: Normal Conjunctiva. Extraocular movements intact. Pupils equal, round and reactive to light ENT: Normal External Ears, Nose and Mouth. Moist Mucous membranes. Neck: Full range of motion. No meningismus. Resp: Clear to auscultation bilaterally, No wheezes, rales or rhonchi Cardio: Regular rate and rhythm. No murmurs, rubs or gallops Abd: Soft, non distended. Epigastric tenderness. Normal bowel sounds Skin: No petechiae or rashes Back: No midline tenderness. No CVA tenderness Ext: No cyanosis, or edema Neur: Awake and alert, oriented 4. Cranial nerves intact. No facial droop. Normal strength, sensation and coordination. Psych: Anxious and Tearful Result Diagram: 11/17/17 1630 11/17/17 1630 Results 24 hrs Laboratory Tests Test 11/17/17 16:30 11/17/17 16:40 White Blood Count 18.810^3/ul Red Blood Count 5.5010^6/ul Hemoglobin 16.4g/dl Hematocrit 44.9% Mean Corpuscular Volume 81.6fl Mean Corpuscular Hemoglobin 29.8pg Mean Corpuscular Hemoglobin Concent 36.5g/dl Red Cell Distribution Width 12.0% Platelet Count 64096^3/UL Mean Platelet Volume 9.6fl Nucleated Red Blood Cells % 0.0/100WBC Sodium Level 141mmol/L Potassium Level 3.9mmol/L Chloride Level 100mmol/L Carbon Dioxide Level 23mmol/L Anion Gap 22 Blood Urea Nitrogen 5mg/dl Creatinine 0.72mg/dl Glucose Level 120mg/dl Calcium Level 10.3mg/dl Total Bilirubin 0.4mg/dl Direct Bilirubin 0.00mg/dl Indirect Bilirubin 0.4mg/dl Aspartate Amino Transf (AST/SGOT) 24IU/L Alanine Aminotransferase (ALT/SGPT) 29IU/L Alkaline Phosphatase 90IU/L Total Protein 8.5g/dl Albumin 5.3g/dl Globulin 3.20g/dl Albumin/Globulin Ratio 1.65 Lipase 66U/L Urine Color YELLOW Urine Clarity CLEAR Urine pH 8.0 Urine Specific [place] 1.014 Urine Ketones NEGATIVEmg/dL Urine Nitrite NEGATIVEmg/dL Urine Bilirubin NEGATIVEmg/dL Urine Urobilinogen NEGATIVEmg/dL Urine Leukocyte Esterase NEGATIVELeu/ul Urine Hemoglobin NEGATIVEmg/dL Urine Glucose NEGATIVEmg/dL Urine Total Protein NEGATIVEmg/dl Current Medications Medications (Trade) Dose Ordered Sig/Rosamaria Route PRN Reason Start Time Stop Time Status Last Admin Dose Admin Metoclopramide HCl (Reglan) 10 mg ONCE ONCE IV 11/17/17 16:30 11/17/17 16:31 DC 11/17/17 16:45 Diphenhydramine HCl 25 mg 25 mg ONCE ONCE IV 11/17/17 16:30 11/17/17 16:31 DC 11/17/17 16:45 Sodium Chloride (NS) 1,000 ml @ 1,000 mls/hr Q1H ONCE IV 11/17/17 16:30 11/17/17 17:29 DC 11/17/17 16:45 Capsaicin (Theragen) 1 applic ONCE STAT TOP 11/17/17 16:17 11/17/17 16:19 DC 11/17/17 16:17 Famotidine (Pepcid Iv) 20 mg ONCE ONCE IV 11/17/17 16:30 11/17/17 16:31 DC 11/17/17 16:45 Miscellaneous Medication (Gi Cocktail (2)) 40 ml ONCE ONCE PO 11/17/17 16:30 11/17/17 16:31 DC 11/17/17 16:45 Lorazepam 1 mg 1 mg ONCE ONCE IV 11/17/17 16:30 11/17/17 16:31 DC 11/17/17 16:45 Sodium Chloride (NS) 1,000 ml @ 1,000 mls/hr Q1H ONCE IV 11/17/17 17:00 11/17/17 17:59 DC 11/17/17 16:46 Procedures/[facility] The patient's presentation warrants further investigation. The patient presents with mild crampy generalized abdominal pain. He does have epigastric discomfort on exam with a history of gastritis. The patient will be treated with Pepcid and a GI cocktail for possible gastritis today. The patient also has a history of marijuana use and the possibility of cannabinoid hyperemesis exists today. I will order capsaicin cream to be applied to his abdomen to see if this helps. I also intend to give the patient Reglan with Benadryl for his nausea as well as IV fluids as he has been vomiting. Blood work will be obtained for evaluation of any electrolyte or infectious etiologies of his symptoms. The patient will also receive a dose of Ativan as he is extremely anxious today. The patient does not have any evidence of peritonitis. The patient does not have any palpable pulsatile mass, and I have low suspicion for AAA. The patient does not have any left lower quadrant tenderness, and I have low suspicion for diverticulosis or diverticulitis. The patient does not have any right lower quadrant tenderness, and I have low suspicion for appendicitis. The patient does not have left upper quadrant tenderness. I have low suspicion for pancreatitis. The patient does not have any flank tenderness. He does not have gross hematuria. I have decreased suspicion for nephrolithiasis or renal colic. Does not have significant right upper quadrant tenderness, and I have low suspicion for gallstones, cholecystitis or biliary colic. He had a negative US in May of 2017. I will obtain an US today for confirmation. A CT abdomen and pelvis was done 3 days ago and was unremarkable. I do not intend to repeat this today. The patient does not have clinical symptoms concerning for mesenteric ischemia or ischemic colitis. LABS The patient's blood work was obtained and reviewed. The patient's CBC shows a leukocytosis and thrombocytosis. I suspect that this is reactive. The patient is afebrile and does not appear systemically ill. I do not suspect a systemic infection. The patient is not anemic today. The patient's platelet count is unremarkable. The patient's CMP shows no signs of metabolic or electrolyte emergencies. The patient has unremarkable renal and hepatic function testing. His lipase is normal. Patient's urinalysis is unremarkable. IMAGING Ultrasound abdomen limited FINDINGS: Gallbladder sludge. The gallbladder wall measures 1 mm. The common bile duct measures 2 mm. No pericholecystic fluid is seen. No reported sonographic Gottlieb sign by the technologist. Portal vein is patent. IMPRESSION: Gallbladder sludge. Otherwise, there is no sonographic evidence of acute cholecystitis. Electronically viewed and signed by .Dayne Leone MD, MD on 11/17/2017 19:26 CT abdomen and pelvis from November 13, 2017 Reviewed by me today FINDINGS: Visualized lower thorax: The lung bases are clear. There is no evidence for pleural effusion. Liver, gallbladder, pancreas and spleen: The liver is normal and size, contour and attenuation. There is no evidence for a liver mass or ductal dilatation. The gallbladder is unremarkable. No common bile duct abnormality is demonstrated. The pancreas is unremarkable. The spleen is normal in size. Adrenal glands and genitourinary system: The adrenal glands are normal bilaterally. The kidneys are normal and size, contour and attenuation with no evidence for masses, calculi or hydronephrosis. The ureters are unremarkable. No urinary bladder abnormality is demonstrated. The prostate gland is normal in size. The visualized scrotum shows no abnormality. Gastrointestinal system: The stomach is normal in caliber with no abnormality of significance. The small bowel is normal in caliber with no ileus, obstruction or wall thickening. The appendix and surrounding fat are within the limits of normal. The colon shows no evidence for wall thickening or acute abnormality. There is no evidence for colitis or diverticulitis. Peritoneum, retroperitoneum, lymph nodes and vessels: The abdominal aorta is normal in caliber. There is no evidence for atherosclerotic calcification. The inferior vena cava is unremarkable. There is no evidence for adenopathy or mass. There is no ascites. Osseous structures and musculoskeletal findings: There is no fracture, lytic or blastic lesion. No muscular abnormality or soft tissue pathology is present. No pneumoperitoneum is present. IMPRESSION: Unremarkable CT scan of the abdomen and pelvis without contrast without findings to explain the patient's provided history. Electronically viewed and signed by Pavan Baltazar, Physician on 11/13/2017 23:53 TREATMENT/DISPOSITION The patient was treated for his abdominal pain with nausea and vomiting with significant improvement after therapy. The patient is afebrile with unremarkable vital signs aside from a mildly elevated blood pressure. As indicated above, I have decreased suspicion for an emergent etiology. Gastritis versus gastroenteritis are possibilities. Cannabinoid hyperemesis is also a possibility. The patient does have gallbladder sludge, but I have decreased suspicion for biliary colic. This may be evaluated as an outpatient. The patient already has medications at home to help with his chronic abdominal pain with nausea and vomiting. He will be instructed to continue these medications. He needs to follow-up with his primary care physician as well as his blending coordinator. At this time, I feel that the patient stable for discharge. The patient will need follow-up with his primary care physician in 2-3 days. The patient will be given strict precautions with which to return to the emergency department. The patient's blood pressure was elevated at greater than 120/80 while in the emergency department. The patient was otherwise stable with no evidence of hypertensive urgency or emergency or end organ damage. The patient does not require admission for blood pressure control. I have discussed with the patient the risks of hypertension. I have advised the patient to follow up with the primary care physician for outpatient monitoring and treatment for hypertension in 2-3 days. I have instructed the patient to return to the ER for any new or worsening symptoms including chest pain, shortness of breath, headache, blurred vision, confusion, nausea, vomiting or LOC. Disclaimer: Inadvertent spelling and grammatical errors are likely due to EHR/ dictation software use and do not reflect on the overall quality of patient care. Note that the electronic time recorded on this note does not necessarily reflect the actual time of the patient encounter. Departure Diagnosis: Primary Impression: Nausea and vomiting Vomiting type: unspecified Vomiting Intractability: non-intractable Qualified Code: R11.2 - Non-intractable vomiting with nausea, unspecified vomiting type Additional Impression: Epigastric pain Condition: ARLENE Bean MD Nov 17, 2017 16:23
[2017-11-17] MEDS ORDERED: FAMOTIDINE 20 MG INJ IV ONE (16:30)
[2017-11-17] MEDS ORDERED: LORAZEPAM 2 MG INJ IV ONE (16:30)
[2017-11-17] MEDS ORDERED: DIPHENHYDRAMINE 50 MG INJ IV ONE (16:30)
[2017-11-17] MEDS ORDERED: METOCLOPRAMIDE 10 MG INJ IV ONE (16:30)
[2017-11-17] MEDS ORDERED: SOD CHLORIDE 0.9% 1,000 ML IV ONE ×2 (16:30→17:00)
[2017-11-17] MEDS ORDERED: LIDOCAINE/MYLANTA 40 ML BTL PO ONE (16:30)
[2017-11-17 16:53] LABS: HEMATOCRIT 44.9 % (42.0-52.0); HEMOGLOBIN 16.4 g/dl (14.0-18.0); MEAN CORPUSCULAR HEMOGLOBIN 29.8 pg (29.0-33.0); MEAN CORPUSCULAR HGB CONC 36.5 g/dl (32.0-37.0); MEAN CORPUSCULAR VOLUME 81.6 fl (82.0-101.0); MEAN PLATELET VOLUME 9.6 fl (7.4-10.4); PLATELET COUNT 487 10^3/UL (140-415); WHITE BLOOD COUNT 18.8 10^3/ul (4.8-10.8)
[2017-11-17 17:07] LABS: ADD UMIC NO; UR ASCORBIC ACID NEGATIVE (NEGATIVE); UR BILIRUBIN (Dip) NEGATIVE (NEGATIVE); UR BLOOD (Dip) NEGATIVE (NEGATIVE); UR CLARITY CLEAR (CLEAR); UR COLOR YELLOW (YELLOW); UR GLUCOSE (Dip) NEGATIVE (NEGATIVE); UR KETONES (Dip) NEGATIVE (NEGATIVE); UR LEUKOCYTE ESTERASE (Dip) NEGATIVE Leu/ul (NEGATIVE); UR NITRITE (Dip) NEGATIVE (NEGATIVE); UR SPECIFIC GRAVITY (Dip) 1.014 (1.003-1.030); UR TOTAL PROTEIN (Dip) NEGATIVE (NEGATIVE); UR UROBILINOGEN (Dip) NEGATIVE (NEGATIVE)
[2017-11-17 17:11] LABS: ALBUMIN 5.3 g/dl (3.3-4.9); ALBUMIN/GLOBULIN RATIO 1.65; BILIRUBIN,INDIRECT 0.4 mg/dl (0-1.1); BILIRUBIN,TOTAL 0.4 mg/dl (0.2-1.3); CALCIUM 10.3 mg/dl (8.4-10.2); CREATININE 0.72 mg/dl (0.61-1.24); TOTAL PROTEIN 8.5 g/dl (6.1-8.1)
[2017-11-17 17:38] LABS: POTASSIUM 3.9 mmol/L (3.5-5.1)
--- NOTE | 2017-11-17 19:26 | RADRPT ---
PROCEDURE: US Abdomen (right upper quadrant). CLINICAL INDICATION: Abdominal pain TECHNIQUE: Multiple real-time longitudinal and transverse images of the right upper quadrant of th e abdomen were acquired utilizing a curved array transducer. Images were reviewed on a high-resoluti on PACS workstation. COMPARISON: None FINDINGS: Gallbladder sludge. The gallbladder wall measures 1 mm. The common bile duct measures 2 mm. No pericholecystic fluid is seen. No reported sonographic Gottlieb sign by the technologist. Portal vein is patent. IMPRESSION: Gallbladder sludge. Otherwise, there is no sonographic evidence of acute cholecystitis. RPTAT: AA .Dayne Leone MD, MD Date Time Electronically viewed and signed by .Dayne Leone MD, on 11/17/2017 19:26 .T/
[2017-11-17] MEDS ORDERED: ACET500C5 PO (19:54)
[2017-11-17 20:06] VITALS: BP 138/86; PULSE 78; RESP 18; TEMP 97.8
== END 2017-11-17 20:17 | disposition home or self-care (01) ==
LOC: E/R 15:11
DX: R11.2 Nausea with vomiting, unspecified (principal); R10.13 Epigastric pain
CPT/HCPCS: 36415; 76705; 80053; 81003; 83690; 85025; 87400; 96374; 96375; 99285; J1200; J2060; J2765; J7030

== ENCOUNTER 2018-08-19 06:30 | Emergency (ER) | END 2018-08-19 14:35 | disposition home or self-care (01) ==

== ENCOUNTER 2019-01-10 14:03 | Emergency (ER) | payer SELFPAY ==
[~2019-01-10] VITALS: Ht 170.2 cm; Wt 90.4 kg
[~2019-01-10 14:03] MED LIST changes: -ACET500C5 PO; -DICY10CA60 PO; +HYDR-4011 PO; -IBUP-1542 PO; -ONDA4TAB14 PO; -PANT40SU PO
[2019-01-10 14:42] VITALS: BP 129/73; PULSE 90; RESP 18; Ht 170.2 cm; Wt 90.4 kg
== END 2019-01-10 19:34 | disposition left against medical advice (07) ==
LOC: E/R 14:03
DX: Z53.21 Procedure and treatment not carried out due to patient leaving prior to being seen by health care provider (principal)